=== PATIENT | female | born 1930 | race Caucasian/White ===

== ENCOUNTER 2017-07-19 16:32 | Inpatient (IN) | payer OTHER ==
[~2017-07-19] VITALS: Ht 149.9 cm; Wt 59.9 kg
[~2017-07-19 16:32] MED LIST: ALAVERT10 MG PO; AMLODIPINE BESY10 MG PO; ANALGESIC325 MG PO; ASPIRIN81 M2 PO; CALCIUM 500 +1 EAC6 PO; CRESTOR10 MG PO; FOSAMAX 70 MG T70 M1 PO; GLUCOPHAGE1000 MG PO; HUMALOG100 UNIT/1 SUBQ; LANTUS100 UNIT/M SUBQ; LEVOTHYROXIN0.025 MG PO; LOPRESSOR50 PO; MAGOX 400400 MG PO; MICARDIS HCT 81 EACH PO; MOTRIN 600 MG600 M1 OR; NORCO 5-325 TA1 EACH PO; PEPCID20 MG PO; PRAVASTATIN SOD40 MG PO; RANITIDINE HCL150 M1 PO; SERTRALINE HCL50 MG PO; VITAMIN B-1100 M1 PO; VITAMIN D 5050000 I1 PO; VITAMIN D31000 UNI1 PO
[2017-07-19 16:43] VITALS: BP 139/64
[2017-07-19] MEDS ORDERED: SEROQUEL 25 MG25 M1 PO (17:09)
[2017-07-19 17:34] LABS: ABSOLUTE BASOPHILS 0.1 thou/uL (0.0-0.2); ABSOLUTE EOSINOPHILS 0.1 thou/uL (0.0-0.7); ABSOLUTE LYMPHOCYTES 2.7 thou/uL (0.8-5.3); ABSOLUTE MONOCYTES 1.1 thou/uL (0.0-1.2); ABSOLUTE NEUTROPHILS 6.5 thou/uL (1.6-8.1); BASOPHILS 0.7 %; EOSINOPHILS 1.3 %; HEMATOCRIT 41.4 % (37.0-47.0); LYMPHOCYTES 25.5 %; MCH 30.5 pg (26.0-34.0); MCHC 33.7 g/dL (28.0-37.0); MCV 90.6 fL (80.0-100.0); MONOCYTES 10.9 %; MPV 8.3 fl. (7.2-11.1); NUCLEATED RBCS 0 /100WBC; PLATELET COUNT* 250 thou/uL (150-400); POLYS 61.6 %; RBC 4.57 mil/uL (4.20-5.00); RDW-CV 14.4 % (10.5-14.5); WBC 10.5 thou/uL (4.0-11.0)
[2017-07-19 17:42] LABS: ANION GAP 6 mmol/L (7-16); BUN 25 mg/dL (7-18); CALCIUM 9.8 mg/dL (8.5-10.1); CHLORIDE 98 mmol/L (98-107); CO2 31 mmol/L (21-32); CREATININE 1.2 mg/dL (0.6-1.3); GLUCOSE 198 mg/dL (70-99); POTASSIUM 3.9 mmol/L (3.5-5.1); SODIUM 135 mmol/L (136-145)
[2017-07-19 17:44] LABS: APTT 24.7 Seconds (25.0-31.3); PROTIME 10.1 Seconds (9.20-11.50)
[2017-07-19 18:01] LABS: ALBUMIN 3.7 g/dL (3.4-5.0); ALKALINE PHOSPHATASE 56 U/L (46-116); CK-MB MASS 0.5 ng/mL (<0.5-3.6); NT-PRO BRAIN NAT PEPTIDE 295 pg/mL (<300); SGOT 29 U/L (15-37); SGPT 37 U/L (30-65); TOTAL BILIRUBIN 0.8 mg/dL (<0.1-1.0); TOTAL PROTEIN 7.4 g/dL (6.4-8.2); TROPONIN-I LEVEL <0.06 ng/mL (<0.06)
[2017-07-19 18:31] LABS: URINE BILIRUBIN NEGATIVE (Negative); URINE BLOOD TRACE (Negative); URINE CLARITY CLEAR; URINE COLOR YELLOW; URINE GLUCOSE-RANDOM NEGATIVE (Negative); URINE KETONES NEGATIVE (Negative); URINE LEUKOCYTES-REFLEX NEGATIVE (Negative); URINE NITRITE-REFLEX NEGATIVE (Negative); URINE PROTEIN NEGATIVE (Negative); URINE UROBILINOGEN 0.2 E.U./dl (0.2-1.0)
[2017-07-19 20:44] VITALS: BP 139/64
[2017-07-20 00:01] VITALS: BP 149/61
[2017-07-20 03:43] VITALS: BP 154/63
[2017-07-20 08:00] VITALS: BP 134/59
--- NOTE | 2017-07-20 09:37 | EKG ---
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: [place] : 1930 Requested By: Candelario Rasmussen Order Number: [id number] MD: Sergey Santiago Measurements Intervals [place] Rate: 74 P: 34 MS: 157 QRS: 14 QRSD: 102 T: 237 QT: 392 QTc: 435 Interpretive Statements Sinus rhythm Probable anterior infarct, age indeterminate Abnormal T, consider ischemia, diffuse leads Lateral leads are also involved Compared to ECG 07/26/2016 18:44:47 Myocardial infarct finding now present T-wave abnormality now present Possible ischemia now present Electronically Signed On 07-20-2017 9:37:16 CDT by Sergey Santiago [email or web address] <ELECTRONICALLY SIGNED> By: Sergey Santiago MD, FAC 07/20/17 0937 1715 1715 Sergey Santiago MD, FAC /EPI
[2017-07-20 10:02] LABS: ALBUMIN 3.6 g/dL (3.4-5.0); CALCIUM 9.5 mg/dL (8.5-10.1); CREATININE 1.2 mg/dL (0.6-1.3); POTASSIUM 3.7 mmol/L (3.5-5.1); TOTAL BILIRUBIN 0.9 mg/dL (<0.1-1.0); TOTAL PROTEIN 7.4 g/dL (6.4-8.2)
[2017-07-20 12:46] VITALS: BP 116/53
[2017-07-20 17:16] VITALS: BP 140/65
[2017-07-20 20:00] VITALS: BP 139/51
[2017-07-20 23:06] LABS: GLYCOHEMOGLOBIN (HGB A1C) 8.3 % (4.8-5.6)
[2017-07-21] VITALS (7 sets, daily range): BP systolic 119–163; BP diastolic 56–71
[2017-07-21 05:23] LABS: CHOLESTEROL 179 mg/dL (<200); HDL CHOLESTEROL 46 mg/dL (>40); LDL CHOLESTEROL 87 mg/dL (<100); TC:HDL 3.9 Ratio (Not establshd); TRIGLYCERIDE 230 mg/dL (<150); VLDL 46 mg/dL (<40)
[2017-07-21 05:29] LABS: SERUM ASSESSMENT Clear
[2017-07-22 00:22] VITALS: BP 134/57
[2017-07-22 04:44] VITALS: BP 132/54
[2017-07-22 08:00] VITALS: BP 164/63
[2017-07-22 12:34] VITALS: BP 136/53
--- NOTE | 2017-07-22 15:35 | 2DMMODE ---
[place] [address] 2 D/M-MODE ECHOCARDIOGRAM Name: MAYE FERMIN Room: [address] IN [facility]#: [id number] Admission: 07/19/17 Attend Phys: Lani Kemp, Discharge: Date of : [birth year] Date of Service: 07/22/17 1535 Report #: [id number] THIS REPORT FOR: //name// APPROVED REPORT Study performed: 07/22/2017 14:18:03 EXAM: Comprehensive 2D, Doppler, and color-flow Echocardiogram Patient Location: In-Patient Room #: [facility] Status: routine BSA: 1.61 HR: 66 bpm BP: 132/54 mmHg Rhythm: NSR Other Information Study Quality: Good Indications CVA/TIA Echo Enhancing Agent Indication: Rule out Shunt Agent(s) / Amount(s) Used: Agitated Saline 10 cc 2D Dimensions LVEF(%): 63.09 (>50%) IVSd: 12.41 (7-11mm) LVOT Diam: 19.66 (18-24mm) LVDd: 39.94 mm PWd: 11.39 (7-11mm) Ascending Ao: 27.21 (22-36mm) LVDs: 26.48 (25-40mm) Aortic Root: 29.71 mm Slater's LVEF: 63.09 % Volumes Left Atrial Volume (Systole) LA ESV Index: 26.00 mL/m2 Aortic Valve AoV Peak Subhash.: 1.70 m/s AO Peak Gr.: 11.50 mmHg LVOT Max P.71 mmHg AO Mean Gr.: 7.04 mmHg LVOT Mean P.87 mmHg LVOT Max V: 0.65 m/s AO V2 VTI: 39.67 cm LVOT Mean V: 0.43 m/[place] [address] 2 D/M-MODE ECHOCARDIOGRAM Name: MAYE FERMIN Room: [address] IN .R.#: [id number] Admission: 07/19/17 Attend Phys: Lani Kemp, Discharge: Date of : [birth year] Date of Service: 07/22/17 1535 Report #: [id number] DIXIE (VTI): 1.46 cm2 LVOT V1 VTI: 19.13 cm Mitral Valve E/A Ratio: 0.64 MV Decel. Time: 296.29 ms MV E Max Subhash.: 0.49 m/s MV PHT: 85.92 ms MVA (PHT): 2.56 cm2 TDI E/Lateral E': 6.13 E/Medial E': 6.13 Medial E' Subhash.: 0.08 m/s Lateral E' Subhash.: 0.08 m/s Pulmonary Valve PV Peak Subhash.: 0.79 m/s PV Peak Gr.: 2.52 mmHg Tricuspid Valve TR Peak Gr.: 23.19 mmHg RVSP: 28.00 mmHg Left Ventricle The left ventricle is normal size. There is normal LV segmental wall motion. Mild concentric left ventricular hypertrophy. Left ventricular systolic function is normal. The left ventricular ejection fraction is within the normal range. LVEF is 55-60%. Grade I - abnormal relaxation pattern. Right Ventricle The right ventricle is normal size. The right ventricular systolic function is normal. Atria The left atrium size is normal. Interatrial septum is intact without evidence of ASD or PFO. The right atrium size is normal. Aortic Valve Mild aortic valve sclerosis. Trace aortic regurgitation. There is no aortic valvular stenosis. Mitral Valve The mitral valve is normal in structure. Mild mitral regurgitation. No evidence of mitral valve stenosis. Tricuspid Valve The tricuspid valve is normal in structure. Trace tricuspid regurgitation. The RVSP is ____28___ [place] [address] 2 D/M-MODE ECHOCARDIOGRAM Name: MAYE FERMIN Room: [address] IN M.R.#: [id number] Admission: 07/19/17 Attend Phys: Lani Kemp, Discharge: Date of : [birth year] Date of Service: 07/22/17 1535 Report #: [id number] Pulmonic Valve The pulmonary valve is normal in structure. There is no pulmonic valvular regurgitation. Great Vessels The aortic root is normal in size. IVC is normal in size and collapses with >50% inspiration Pericardium There is no pericardial effusion. <Conclusion> Mild concentric left ventricular hypertrophy. LVEF is 55-60%. Mild aortic valve sclerosis. Mild mitral regurgitation. Interatrial septum is intact without evidence of ASD or PFO. <ELECTRONICALLY SIGNED> By: Ranjan Olivo MD, [facility] 07/22/17 1535 1535 1535 Ranjan Olivo MD, FACC /INF
[2017-07-22 15:56] VITALS: BP 127/57
[2017-07-22 20:00] VITALS: BP 138/56
[2017-07-23] VITALS: BP 142/84
[2017-07-23 04:38] VITALS: BP 129/72
[2017-07-23 08:00] VITALS: BP 139/67
[2017-07-23 12:21] VITALS: BP 133/58
[2017-07-23 15:49] VITALS: BP 147/63
[2017-07-23 20:00] VITALS: BP 155/60
[2017-07-23] MEDS ORDERED: PLAVIX 75 MG TA75 M1 PO (23:31)
[2017-07-24] VITALS: BP 154/61
[2017-07-24 03:57] VITALS: BP 144/60
[2017-07-24 08:00] VITALS: BP 121/53
[2017-07-24 12:00] VITALS: BP 109/73
[2017-07-24 16:00] VITALS: BP 148/61
[2017-07-24 17:55] VITALS: BP 148/61
== END 2017-07-24 18:39 | DRG 64 ==
LOC: M.ERS 16:32 → M.2W 18:46 → M.TBA-ER 18:46 → M.2W 20:30
PROVIDERS: Family Medicine; ADMIT Internal Medicine
DX: I63.9 Cerebral infarction, unspecified (principal); G93.41 Metabolic encephalopathy; J98.11 Atelectasis; I25.10 Atherosclerotic heart disease of native coronary artery without angina pectoris; I10 Essential (primary) hypertension; I99.9 Unspecified disorder of circulatory system; E11.9 Type 2 diabetes mellitus without complications; M19.90 Unspecified osteoarthritis, unspecified site; E78.00 Pure hypercholesterolemia, unspecified; Z96.649 Presence of unspecified artificial hip joint; Z79.82 Long term (current) use of aspirin; Z79.4 Long term (current) use of insulin; Z79.899 Other long term (current) drug therapy; Z88.2 Allergy status to sulfonamides; Z91.040 Latex allergy status; Z90.710 Acquired absence of both cervix and uterus; Z95.1 Presence of aortocoronary bypass graft; Z98.890 Other specified postprocedural states; Z82.49 Family history of ischemic heart disease and other diseases of the circulatory system

== ENCOUNTER 2017-07-24 17:07 | Inpatient (IN) | payer OTHER ==
[~2017-07-24] VITALS: Ht 149.9 cm; Wt 61.9 kg
[~2017-07-24 17:07] MED LIST changes: +PLAVIX 75 MG TA75 M1 PO; +SEROQUEL 25 MG25 M1 PO
[2017-07-24 19:30] VITALS: BP 123/57
[2017-07-25 04:19] LABS: HEMATOCRIT 38.9 % (37.0-47.0); MCH 30.6 pg (26.0-34.0); MCHC 33.4 g/dL (28.0-37.0); MCV 91.8 fL (80.0-100.0); MPV 8.3 fl. (7.2-11.1); RBC 4.24 mil/uL (4.20-5.00); RDW-CV 14.3 % (10.5-14.5)
[2017-07-25 04:31] LABS: CALCIUM 9.4 mg/dL (8.5-10.1); CREATININE 1.1 mg/dL (0.6-1.3); POTASSIUM 4.4 mmol/L (3.5-5.1)
[2017-07-25 08:00] VITALS: BP 144/60
[2017-07-25 20:00] VITALS: BP 142/62
[2017-07-26 08:00] VITALS: BP 121/65
[2017-07-26 16:21] VITALS: BP 120/50
[2017-07-26 20:05] VITALS: BP 127/61
[2017-07-27 08:09] VITALS: BP 142/70
[2017-07-27 20:05] VITALS: BP 126/63
[2017-07-28 07:15] VITALS: BP 143/58
[2017-07-28 20:11] VITALS: BP 136/51
[2017-07-29 08:05] VITALS: BP 122/47
[2017-07-29 20:14] VITALS: BP 143/69
[2017-07-30 07:51] VITALS: BP 174/66
[2017-07-30 19:30] VITALS: BP 149/58
[2017-07-31 07:52] VITALS: BP 145/59
[2017-07-31 20:05] VITALS: BP 145/64
[2017-08-01 19:35] VITALS: BP 136/62
[2017-08-02 08:00] VITALS: BP 151/73
[2017-08-02 20:15] VITALS: BP 176/63
[2017-08-03 07:30] VITALS: BP 139/65
[2017-08-03 20:00] VITALS: BP 129/62
[2017-08-04 07:45] VITALS: BP 115/73
[2017-08-04 20:00] VITALS: BP 125/59
[2017-08-05 08:01] VITALS: BP 146/62
[2017-08-05 20:27] VITALS: BP 109/55
[2017-08-06 08:10] VITALS: BP 141/54
[2017-08-06 19:49] VITALS: BP 134/51
[2017-08-07 08:15] VITALS: BP 137/58
[2017-08-07 19:30] VITALS: BP 135/69
[2017-08-08 07:49] VITALS: BP 133/48
[2017-08-08 19:30] VITALS: BP 144/52
[2017-08-09 08:26] VITALS: BP 128/57
[2017-08-09 20:00] VITALS: BP 138/65
[2017-08-10 07:18] LABS: HEMATOCRIT 40.9 % (37.0-47.0); HEMOGLOBIN 13.3 gm/dL (12.0-15.0); MCH 30.2 pg (26.0-34.0); MCHC 32.6 g/dL (28.0-37.0); MCV 92.5 fL (80.0-100.0); MPV 8.3 fl. (7.2-11.1); RBC 4.42 mil/uL (4.20-5.00); RDW-CV 13.8 % (10.5-14.5); WBC 7.5 thou/uL (4.0-11.0)
[2017-08-10 07:24] LABS: CALCIUM 9.5 mg/dL (8.5-10.1); MAGNESIUM 1.9 mg/dL (1.8-2.4); POTASSIUM 3.8 mmol/L (3.5-5.1)
[2017-08-10 07:41] VITALS: BP 137/58
[2017-08-10 08:03] VITALS: BP 137/58
[2017-08-10 20:08] VITALS: BP 143/63
[2017-08-11 00:20] VITALS: BP 143/63
[2017-08-11] MEDS ORDERED: METFORMIN HCL500 MG PO (00:28)
[2017-08-11] MEDS ORDERED: CRESTOR10 MG PO (00:31)
[2017-08-11 08:25] VITALS: BP 141/51
[2017-08-11 19:30] VITALS: BP 130/59
[2017-08-12 03:59] LABS: HEMOGLOBIN 13.2 gm/dL (12.0-15.0); MCH 30.4 pg (26.0-34.0); MCV 92.2 fL (80.0-100.0); MPV 8.3 fl. (7.2-11.1); RBC 4.34 mil/uL (4.20-5.00); RDW-CV 13.9 % (10.5-14.5); WBC 7.3 thou/uL (4.0-11.0)
[2017-08-12 04:18] LABS: MAGNESIUM 1.9 mg/dL (1.8-2.4); POTASSIUM 4.2 mmol/L (3.5-5.1)
[2017-08-12 08:02] VITALS: BP 123/55
--- NOTE | 2017-08-12 12:16 | H ---
[facility] [address] [place] [address] HISTORY AND PHYSICAL Name: MAYE FERMIN Room: [address] IN .R.#: [id number] Admission: 07/24/17 Attend Phys: Paradise Willams DO Discharge: Date of : [birth year] Report #: [id number] THIS REPORT FOR: //name// CC: Ham Willams DATE OF SERVICE: 07/24/2017 HISTORY OF PRESENT ILLNESS: This is an 86-year-old female, right hand dominant, known to this service from previous consultation while on acute during her hospital stay. 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 Previous level of function was modified independent to independent. Current level of function is minimum assistance of 1-2 depending on therapy, activity and time of day. She is utilizing a front-wheeled walker. She is ambulating 20 feet. She has moderate to severe impairment of comprehension, expression, social interaction, problem solving and memory. Estimated length of stay is 14-16 days, with discharge disposition to the home setting where she has supportive family that can provide supervision and assistance, this does include her daughter. No changes since the preadmission screening. She does have multiple medical comorbidities including diabetes with a random glucose of 161, hypertension, hyperlipidemia, osteoarthritis, coronary artery disease. She does have a history of a previous CVA in 2017 as well with residual hemiparesis on the right dominant side. Patient has new dysphagia. New left hand hemiparesis. New expressive aphasia. PAST MEDICAL HISTORY: Hypertension, hyperlipidemia, osteoarthritis, coronary artery disease, diabetes (uncontrolled) , altered mental status, anemia, history of previous CVA with residual right hemiparesis. SURGICAL HISTORY: She has history of back surgery and open heart surgery and a total hip replacement. ALLERGIES: SULFA AND TAPE. SOCIAL HISTORY: Former use of alcohol, but no tobacco or illicit drug use. MEDICATIONS: Reviewed and reconciled by myself and are available in the MAR. FAMILY HISTORY: Heart disease. REVIEW OF SYSTEMS: A 14-point review of systems is done and is negative except as mentioned in HPI, specifically no fever, chest pain, shortness of breath, [place] [address] HISTORY AND PHYSICAL Name: JENYMAYE Tony Room: [address] IN [facility].#: [id number] Admission: 07/24/17 Attend Phys: Paradise Willams DO Discharge: Date of : [birth year] Report #: [id number] abdominal pain or distention, change in bowel or change in bladder. PHYSICAL EXAMINATION: GENERAL: Alert, oriented, no apparent distress. VITAL SIGNS: Reviewed and are stable. HEENT: Head atraumatic, normocephalic. Pupils equal, round, reactive. ABDOMEN: Soft, nontender, nondistended. NEUROLOGIC: Cranial nerves 2-12 are grossly intact. No focal neuro deficits. SKIN: Warm and dry. No rashes or lesions are noted. MUSCULOSKELETAL: No clubbing, cyanosis or edema. ASSESSMENT: 1. Left occipital lobe cerebrovascular accident, with history of previous cerebrovascular accident with residual hemiparesis. 2. Multiple medical comorbidities as stated previously. 3. New onset Dysphagia and expressive aphasia 4. uncontrolled dm PLAN: 1. Admission to inpatient rehabilitation. 2. PT, OT, speech, language, case management, nursing and HIMS to make evaluations and recommendations. 3. Plan of care is pending. We will team her weekly. 4. Appropriate labs and diet have been ordered. <ELECTRONICALLY SIGNED> By: Paradise Willams DO 08/12/17 1216 1543 1703Kneal Willams DO /nt
[2017-08-12 19:30] VITALS: BP 149/56
[2017-08-13 07:51] VITALS: BP 134/96
[2017-08-13 09:45] VITALS: BP 143/63
[2017-08-13 09:49] VITALS: BP 143/63
[2017-08-13] MEDS ORDERED: METFORMIN HCL500 MG PO (13:26)
[2017-08-13] MEDS ORDERED: PLAVIX 75 MG TA75 M1 PO (13:26)
[2017-08-13 14:05] VITALS: BP 143/63
--- NOTE | 2017-09-04 11:20 | PLAN ---
[facility] [address] [place] [address] REHAB UNIT PLAN OF CARE Name: MAYE FERMIN Room: [address] IN [facility].#: [id number] Admission: 07/24/17 Attend Phys: Paradise Willams DO Discharge: 08/13/17 Date of : [birth year] Report #: [id number] THIS REPORT FOR: //name// CC: Ham Willams This is an 86-year-old right-hand dominant female status post left occipital lobe infarct. She was admitted to inpatient rehabilitation to facilitate safe discharge home. She does have supportive family that can provide assistance as well as supervision; this does include her daughter. She has an accessible house. Medical prognosis is good. Rehabilitation prognosis is good. Estimated length of stay is 14-16 days with discharge disposition to the home setting. She does have multiple medical comorbidities. No changes since the preadmission screening. Previous level of function was modified independent. Current level of function is supervision to minimum assistance of 1-2 depending on therapy, activity and time of day. She also has [id number] impairment of comprehension, expression, social interaction, problem solving and memory. Physical Therapy will see the patient 60-90 minutes per day, 5 days per week, working on upper and lower body strength, balance, coordination, navigation, bathing. Occupational Therapy will work with the patient 60-90 minutes per day, 5 days per week, working on upper and lower body strength, balance, coordination, navigation, bathing, dressing, and toileting. Speech and Language Pathology will work with the patient 60-90 minutes per day, 5 days per week, working on comprehension, expression, social interaction, problem solving and memory. This is an overall plan of care, may change from time to time. We will team her weekly and make changes to plan of care as needed. <ELECTRONICALLY SIGNED> By: Paradise Willams DO 09/04/17 1120 1545 Juan A Willams DO /nt
== END 2017-08-13 14:05 | disposition home health service (06) | DRG 56 ==
LOC: M.REH 17:07
PROVIDERS: Family Medicine; ADMIT Physical Medicine & Rehabilitation
DX: I69.951 Hemiplegia and hemiparesis following unspecified cerebrovascular disease affecting right dominant side (principal); I63.9 Cerebral infarction, unspecified; R47.01 Aphasia; I10 Essential (primary) hypertension; E78.5 Hyperlipidemia, unspecified; M19.90 Unspecified osteoarthritis, unspecified site; R13.10 Dysphagia, unspecified; E11.65 Type 2 diabetes mellitus with hyperglycemia; R41.89 Other symptoms and signs involving cognitive functions and awareness; I25.10 Atherosclerotic heart disease of native coronary artery without angina pectoris; Z88.2 Allergy status to sulfonamides; Z91.041 Radiographic dye allergy status; Z95.1 Presence of aortocoronary bypass graft; Z82.49 Family history of ischemic heart disease and other diseases of the circulatory system; Z79.82 Long term (current) use of aspirin; Z79.4 Long term (current) use of insulin; Z79.899 Other long term (current) drug therapy; Z90.710 Acquired absence of both cervix and uterus; Z79.02 Long term (current) use of antithrombotics/antiplatelets

== ENCOUNTER 2018-01-07 09:55 | Inpatient (IN) | payer OTHER ==
[~2018-01-07] VITALS: Ht 154.9 cm; Wt 67.1 kg
[~2018-01-07 09:55] MED LIST changes: +METFORMIN HCL500 MG PO
[2018-01-07 10:01] VITALS: BP 149/68
[2018-01-07] MEDS ORDERED: ROSUVASTATIN CA10 MG PO (10:10)
[2018-01-07] MEDS ORDERED: SEROQUEL 25 MG25 M1 PO (10:10)
[2018-01-07] MEDS ORDERED: CALCIUM 600 +1 EAC1 PO (10:11)
[2018-01-07] MEDS ORDERED: ZANTAC 150MG T150 MG PO (10:11)
[2018-01-07] MEDS ORDERED: PROAIR RESPICL90 MCG INH (10:12)
[2018-01-07] MEDS ORDERED: LANTUS SOL100 UNIT/1 SUBQ (10:12)
[2018-01-07] MEDS ORDERED: AMOXICILLIN 50500 MG PO (10:13)
[2018-01-07 10:31] LABS: ABSOLUTE EOSINOPHILS 0.3 thou/uL (0.0-0.7); ABSOLUTE LYMPHOCYTES 1.7 thou/uL (0.8-5.3); ABSOLUTE MONOCYTES 1.1 thou/uL (0.0-1.2); ABSOLUTE NEUTROPHILS 5.6 thou/uL (1.6-8.1); BASOPHILS 0.5 %; HEMATOCRIT 41.6 % (37.0-47.0); HEMOGLOBIN 13.8 gm/dL (12.0-15.0); LYMPHOCYTES 19.8 %; MCH 29.2 pg (26.0-34.0); MCHC 33.1 g/dL (28.0-37.0); MCV 88.2 fL (80.0-100.0); MONOCYTES 12.7 %; MPV 8.2 fl. (7.2-11.1); NUCLEATED RBCS 0 /100WBC; PLATELET COUNT* 236 thou/uL (150-400); RBC 4.72 mil/uL (4.20-5.00); RDW-CV 14.7 % (10.5-14.5); WBC 8.7 thou/uL (4.0-11.0)
[2018-01-07 10:42] LABS: ANION GAP 10 mmol/L (7-16); BUN 17 mg/dL (7-18); CALCIUM 9.2 mg/dL (8.5-10.1); CHLORIDE 103 mmol/L (98-107); CO2 28 mmol/L (21-32); CREATININE 1.1 mg/dL (0.6-1.3); GLUCOSE 127 mg/dL (70-99); POTASSIUM 3.5 mmol/L (3.5-5.1); SODIUM 141 mmol/L (136-145)
[2018-01-07 10:47] LABS: APTT 26.9 Seconds (25.0-31.3); PROTIME 10.2 Seconds (9.20-11.50)
[2018-01-07 10:53] LABS: ALBUMIN 3.5 g/dL (3.4-5.0); ALKALINE PHOSPHATASE 60 U/L (46-116); NT-PRO BRAIN NAT PEPTIDE 316 pg/mL (<300); SGOT 20 U/L (15-37); SGPT 27 U/L (30-65); TOTAL PROTEIN 7.7 g/dL (6.4-8.2); TROPONIN-I LEVEL <0.06 ng/mL (<0.06)
--- NOTE | 2018-01-07 16:50 | EKG ---
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: : 1930 Requested By: Candelario Rasmussen Order Number: [id number] MD: Sergey Santiago Measurements Intervals [place] Rate: 74 P: -1 DE: 138 QRS: -26 QRSD: 108 T: 146 QT: 382 QTc: 424 Interpretive Statements Sinus rhythm Borderline left axis deviation Anterior infarct, age indeterminate Lateral leads are also involved Compared to ECG 07/19/2017 17:15:15 T-wave abnormality no longer present Possible ischemia no longer present Myocardial infarct finding still present Electronically Signed On 01-07-2018 16:49:56 PROGRAM ARRANGER by Sergey Santiago [email or web address] <ELECTRONICALLY SIGNED> By: Sergey Santiago MD, FACC 01/07/18 1649 1008 1008 Sergey Santiago MD, FACC /EPI
[2018-01-07 17:10] VITALS: BP 147/50
[2018-01-07 17:15] VITALS: BP 139/52
[2018-01-07 20:45] VITALS: BP 151/61
[2018-01-07 23:50] VITALS: BP 133/50
[2018-01-08 04:20] VITALS: BP 170/61
[2018-01-08 07:50] VITALS: BP 143/58
[2018-01-08 16:00] VITALS: BP 153/77
[2018-01-08 21:06] LABS: GLYCOHEMOGLOBIN (HGB A1C) 9.1 % (4.8-5.6)
[2018-01-08 23:30] VITALS: BP 173/75
[2018-01-09 03:50] VITALS: BP 146/69
[2018-01-09 03:50] LABS: ABSOLUTE LYMPHOCYTES 0.9 thou/uL (0.8-5.3); ABSOLUTE MONOCYTES 0.3 thou/uL (0.0-1.2); ABSOLUTE NEUTROPHILS 4.9 thou/uL (1.6-8.1); BASOPHILS 0.1 %; HEMATOCRIT 37.7 % (37.0-47.0); HEMOGLOBIN 12.3 gm/dL (12.0-15.0); LYMPHOCYTES 14.4 %; MCH 28.9 pg (26.0-34.0); MCHC 32.5 g/dL (28.0-37.0); MCV 88.8 fL (80.0-100.0); MONOCYTES 5.1 %; MPV 8.4 fl. (7.2-11.1); NUCLEATED RBCS 0 /100WBC; PLATELET COUNT* 243 thou/uL (150-400); POLYS 80.4 %; RBC 4.24 mil/uL (4.20-5.00); RDW-CV 14.8 % (10.5-14.5); WBC 6.1 thou/uL (4.0-11.0)
[2018-01-09 03:55] LABS: CALCIUM 9.3 mg/dL (8.5-10.1); MAGNESIUM 1.9 mg/dL (1.8-2.4); POTASSIUM 3.4 mmol/L (3.5-5.1)
[2018-01-09 08:00] VITALS: BP 174/70
--- NOTE | 2018-01-09 12:03 | CON ---
[address] [address] CONSULTATION Name: MAYE FERMIN Room: [address] IN M.R.#: [id number] Admission: 01/07/18 Attend Phys: Bandar Howard Discharge: Date of : [birth year] Report #: [id number] THIS REPORT FOR: //name// CC: Ham Valadez DATE OF SERVICE: 01/08/2018 REQUESTING PHYSICIAN: Dr. Valadez. REASON FOR CONSULTATION: Pneumonia. DISCUSSION: An 87-year-old woman with prior history of strokes. She was brought to the Emergency Department yesterday with increasing weakness and generalized malaise for the last 6 days or so. She is a fair historian. Currently, her daughter is not at the bedside. Was given breathing treatments en route. She is a nonsmoker. She has had some cough, but denies bringing up much mucus. When evaluated in the Emergency Department, notes indicate her saturations were in the 90s. ED notes indicate her lungs were clear. Chest x-ray revealed right lower lobe opacity, which could be consistent with pneumonia. With her increased weakness and prior history of strokes, she also had another CT head done. She was admitted, started on IV antibiotics. T-max since admission was 99. She has been on O2 at 2 liters overnight. We were able to take that off at the time I saw her this morning. She is a lifelong nonsmoker. She denies ever being told that she had asthma or COPD. She has had several strokes. Last one was back in the spring of this year, she did spend some time on rehabilitation. She denies having difficulty smoking at home. PAST MEDICAL HISTORY: Remarkable for hypertension. She has had several strokes and TIAs. A history of coronary artery disease, had coronary artery bypass grafting surgery. Has had a prior hysterectomy, bilateral hip replacements. At that time, she was admitted yesterday. HOME MEDICATIONS: Plavix, Seroquel, calcium, ranitidine, amlodipine, levothyroxine, amoxicillin, insulin, Crestor. SOCIAL HISTORY: Nonsmoker. Lives with family. FAMILY HISTORY: Positive for heart disease. REVIEW OF SYSTEMS: ROS was done. She denies having any difficulty swallowing at home. Does use a walker to ambulate. Denies any chest pain. [place], [place] [address] CONSULTATION Name: MAYE FERMIN Room: [address]#: [id number] Admission: 01/07/18 Attend Phys: Bandar Howard Discharge: Date of : [birth year] Report #: [id number] was feeling short of breath at home. She also describes her breathing is doing "funny." Denies any hemoptysis. Denies having any vomiting, diarrhea. Was around family members at [facility] including small children. She has had her flu shot. Denies swelling in her lower extremities. No recent falls. No syncopal episodes. PHYSICAL EXAMINATION: GENERAL APPEARANCE: Woman who looks stated age. Alert, cooperative. Her speech is fairly easy to understand. At times, she does hesitate before speaking. Did observe her ambulating into the bathroom with a walker. She did get somewhat dyspneic with exertion, but did fairly quickly resolve. At rest on room air, O2 saturations were in the low 90s. Even after ambulating; however, from the bathroom back to bed, O2 saturations were 94%. At rest, she looked comfortable. Did look somewhat dyspneic when she was exerting herself. HEENT: Head is normocephalic. Mucous membranes are a little dry. NECK: Negative for adenopathy. No supraclavicular adenopathy. HEART: Regular. No S3 is heard. LUNGS: Reveal breath sounds to be somewhat diminished. After ambulating, though she was tachypneic. There was audible wheezing heard. She had rhonchi and expiratory wheezes heard bilaterally. ABDOMEN: Mildly obese, but soft, without appreciable hepatosplenomegaly. There is no guarding or rebound tenderness noted. EXTREMITIES: She has no clubbing. Lower extremities are negative for edema. She denies any calf tenderness. SKIN: Turgor is fair. NEUROLOGIC: Does appear alert and oriented x 3. LABORATORY AND X-RAY FINDINGS: Chest x-ray does show some infiltrate seen in the right base. This was not seen on studies done this past spring. On her chemistry, BUN is 17, creatinine of 1.1, potassium is 3.5. White blood cell count 8700, hemoglobin 13.8, hematocrit 41.6, platelets 236,000. Blood cultures were sent. IMPRESSION: 1. Right lower lobe infiltrate consistent with pneumonia. With prior history of strokes, main concern is this could represent an aspiration pneumonia. Clinically, is better today. 2. Hypoxemia, appears resolved. Room air sats are good on room air even with exertion. 3. Bronchospasm. Most likely related to her lower respiratory tract infection. 4. History of prior strokes. 5. History of coronary artery disease status post coronary artery bypass grafting surgery. Do note last echocardiogram showed preserved systolic function. RECOMMENDATIONS: [facility] [address] [place] [address] CONSULTATION Name: MAYE FERMIN Room: [address]#: [id number] Admission: 01/07/18 Attend Phys: Bandar Howard Discharge: Date of : [birth year] Report #: [id number] 1. We will continue her DuoNeb. Next 24 hours of steroids. 2. Continue antibiotics. Follow up chest x-ray tomorrow. 3. We will also check respiratory viral panel. 4. Agree with swallow evaluation, which has already been requested. 5. Hopefully get discharged home in the next several days. <ELECTRONICALLY SIGNED> By: Elizabeth Mayo MD 01/09/18 1203 1047 1443Elizabeth Mayo MD /nt
[2018-01-09 16:00] VITALS: BP 147/63
[2018-01-10] VITALS: BP 112/55
[2018-01-10 04:00] VITALS: BP 116/52
[2018-01-10 04:00] LABS: HEMATOCRIT 37.6 % (37.0-47.0); HEMOGLOBIN 12.2 gm/dL (12.0-15.0); MCH 28.9 pg (26.0-34.0); MCHC 32.4 g/dL (28.0-37.0); MCV 89.1 fL (80.0-100.0); MPV 7.7 fl. (7.2-11.1); RBC 4.22 mil/uL (4.20-5.00); RDW-CV 14.6 % (10.5-14.5); WBC 10.7 thou/uL (4.0-11.0)
[2018-01-10 04:22] LABS: CALCIUM 8.9 mg/dL (8.5-10.1); POTASSIUM 3.5 mmol/L (3.5-5.1)
[2018-01-10 08:00] VITALS: BP 164/83
[2018-01-10 12:00] VITALS: BP 120/52
[2018-01-10] MEDS ORDERED: LEVAQUIN 750 M750 MG PO (13:00)
[2018-01-10 13:50] VITALS: BP 120/52
[2018-01-11 02:07] LABS: ADENOVIRUS Negative (Negative); INFLUENZA A Negative (Negative); INFLUENZA B Negative (Negative); METAPNEUMOVIRUS Negative (Negative); PARAINFLUENZA 1 Negative (Negative); PARAINFLUENZA 2 Negative (Negative); PARAINFLUENZA 3 Negative (Negative); RHINOVIRUS Negative (Negative); RSV A Negative (Negative); RSV B Negative (Negative)
== END 2018-01-10 14:40 | disposition home health service (06) | DRG 177 ==
LOC: M.ERS 09:55 → M.TBA-ER 11:57 → M.3W 11:57
PROVIDERS: Family Medicine; Internal Medicine Pulmonary Disease; ADMIT Internal Medicine
DX: J15.6 Pneumonia due to other Gram-negative bacteria (principal); J96.01 Acute respiratory failure with hypoxia; R65.10 Systemic inflammatory response syndrome (SIRS) of non-infectious origin without acute organ dysfunction; E78.5 Hyperlipidemia, unspecified; I10 Essential (primary) hypertension; Z96.643 Presence of artificial hip joint, bilateral; E78.00 Pure hypercholesterolemia, unspecified; M19.90 Unspecified osteoarthritis, unspecified site; I25.10 Atherosclerotic heart disease of native coronary artery without angina pectoris; J04.0 Acute laryngitis; F03.90 Unspecified dementia, unspecified severity, without behavioral disturbance, psychotic disturbance, mood disturbance, and anxiety; E11.65 Type 2 diabetes mellitus with hyperglycemia; T38.0X5A Adverse effect of glucocorticoids and synthetic analogues, initial encounter; E87.6 Hypokalemia; Z79.82 Long term (current) use of aspirin; Z88.2 Allergy status to sulfonamides; Z86.73 Personal history of transient ischemic attack (TIA), and cerebral infarction without residual deficits; Z95.1 Presence of aortocoronary bypass graft; Z90.710 Acquired absence of both cervix and uterus; Z82.49 Family history of ischemic heart disease and other diseases of the circulatory system; Z79.899 Other long term (current) drug therapy; Z23 Encounter for immunization

== ENCOUNTER 2018-03-31 14:39 | Inpatient (IN) | payer OTHER ==
[~2018-03-31] VITALS: Ht 149.9 cm; Wt 64.0 kg
[~2018-03-31 14:39] MED LIST changes: +AMOXICILLIN 50500 MG PO; +CALCIUM 600 +1 EAC1 PO; +LANTUS SOL100 UNIT/1 SUBQ; +LEVAQUIN 750 M750 MG PO; +PROAIR RESPICL90 MCG INH; +ROSUVASTATIN CA10 MG PO; +ZANTAC 150MG T150 MG PO
[2018-03-31 14:44] VITALS: BP 139/68
[2018-03-31] MEDS ORDERED: LOPRESSOR50 PO (14:51)
[2018-03-31] MEDS ORDERED: MAGNESIUM OXID200 MG PO (14:51)
[2018-03-31] MEDS ORDERED: HYDROCHLOROTHIA25 M2 PO (14:52)
[2018-03-31 16:53] LABS: ABSOLUTE BASOPHILS 0.1 thou/uL (0.0-0.2); ABSOLUTE EOSINOPHILS 0.3 thou/uL (0.0-0.7); ABSOLUTE LYMPHOCYTES 2.2 thou/uL (0.8-5.3); ABSOLUTE NEUTROPHILS 8.1 thou/uL (1.6-8.1); BASOPHILS 0.7 %; EOSINOPHILS 2.8 %; HEMATOCRIT 42.7 % (37.0-47.0); HEMOGLOBIN 14.1 gm/dL (12.0-15.0); LYMPHOCYTES 18.4 %; MCH 29.4 pg (26.0-34.0); MONOCYTES 8.6 %; MPV 8.2 fl. (7.2-11.1); NUCLEATED RBCS 0 /100WBC; PLATELET COUNT* 240 thou/uL (150-400); POLYS 69.5 %; RDW-CV 15.6 % (10.5-14.5); WBC 11.7 thou/uL (4.0-11.0)
[2018-03-31 17:04] LABS: ANION GAP 9 mmol/L (7-16); BUN 20 mg/dL (7-18); CALCIUM 9.6 mg/dL (8.5-10.1); CHLORIDE 100 mmol/L (98-107); CO2 29 mmol/L (21-32); CREATININE 1.5 mg/dL (0.6-1.3); GLUCOSE 240 mg/dL (70-99); POTASSIUM 4.1 mmol/L (3.5-5.1); SODIUM 138 mmol/L (136-145)
[2018-03-31 17:18] LABS: ALBUMIN 3.7 g/dL (3.4-5.0); ALKALINE PHOSPHATASE 60 U/L (46-116); NT-PRO BRAIN NAT PEPTIDE 267 pg/mL (<300); SGOT 31 U/L (15-37); SGPT 31 U/L (30-65); TOTAL BILIRUBIN 0.7 mg/dL (<0.1-1.0); TOTAL PROTEIN 7.5 g/dL (6.4-8.2)
[2018-03-31 17:33] LABS: TROPONIN-I LEVEL <0.06 ng/mL (<0.06)
[2018-03-31 19:53] LABS: URINE BILIRUBIN NEGATIVE (Negative); URINE BLOOD TRACE (Negative); URINE CLARITY CLEAR; URINE COLOR YELLOW; URINE GLUCOSE-RANDOM NEGATIVE (Negative); URINE KETONES NEGATIVE (Negative); URINE LEUKOCYTES-REFLEX NEGATIVE (Negative); URINE NITRITE-REFLEX NEGATIVE (Negative); URINE PROTEIN NEGATIVE (Negative); URINE SPECIFIC GRAVITY 1.015 (1.005-1.030); URINE UROBILINOGEN 0.2 E.U./dl (0.2-1.0)
[2018-03-31 20:00] VITALS: BP 165/77
--- NOTE | 2018-03-31 20:00 | NUR ---
PT ADMITTED TO FLOOR PER CART ACCOMPANIED BY ER STAFF AND FAMILY WITH BELONGINGS. ORIENTED TO ROOM AND CALL LITE. PT ALERT,ORIENTED TO SELF AND SITUATION, PLEASANT. HISTORY OBTAINED FROM FAMILY AND ASSESSMENT PERFORMED, SEE ADMIT NOTES. CALL LITE IN EASY REACH, BED ALARM ON FOR SAFETY. RFA IVF PLACED ON PUMP FOR INFUSION-AWAITING IV ABX FROM [facility]. CO R SIDE PAIN WITH MOVEMENT, DENIES NEED FOR PAIN MEDS AT THIS TIME. REQUESTING BOX LUNCH, TO BE GIVEN. 02 2L NC. WILL CONTINUE TO MONITOR AND PROVIDE CARES NEEDED.
[2018-03-31 20:12] VITALS: BP 155/63
[2018-03-31] MEDS ORDERED: ZOLOFT100 MG PO (20:30)
[2018-04-01] VITALS: BP 124/56
[2018-04-01 03:55] VITALS: BP 152/64
--- NOTE | 2018-04-01 05:33 | NUR ---
PT HAS SLEPT FAIRLY WELL AFTER SETTLING IN AFTER ADMISSION. SETTING OFF BED ALARM GETTING OOB TO USE BSC, INCONTINENT OVERNIGHT. KATHERINE CARE GIVEN. BM SMEAR OVERNIGHT. PT CO R SIDE PAIN WITH MOVEMENT, ALLEVIATED WITH REST. RWRIST IVF INFUSING PER PUMP, ABX GIVEN ORDERED. RT TX. O2 2L NC. HS ACCUCHECK 163, INSULIN GIVEN ORDERED. AO TO SELF AND SITUATION, PLEASANT, FORGETFUL. CALL LITE IN EASY REACH, BED ALARM ON FOR SAFETY.
[2018-04-01 09:12] VITALS: BP 131/57
--- NOTE | 2018-04-01 09:46 | EKG ---
[place] [address] ELECTROCARDIOGRAM REPORT Name: MAYE FERMIN Room: [address] ADM IN M.R.#: [id number] Admission: 03/31/18 Attend Phys: Richard Stern MD Discharge: Date of : [birth year] Report #: [id number] THIS REPORT FOR: //name// [facility] ED Test Date: 2018-03-31 Test Time: 17:04:47 Pat Name: MAYE FERMIN Department: Room: [facility] Gender: F Viscosity Inspector: STEFFEN : 1930 Requested By: Yolette Stinson Order Number: [id number] MD: Varghese Solomon Measurements Intervals [place] Rate: 80 P: -19 NV: 141 QRS: -34 QRSD: 114 T: 145 QT: 394 QTc: 455 Interpretive Statements Sinus rhythm LVH with IVCD and secondary repol abnrm Compared to ECG 01/07/2018 10:08:59 Intraventricular conduction delay now present Left ventricular hypertrophy now present Early repolarization now present Myocardial infarct finding no longer present Electronically Signed On 04-01-2018 9:46:36 DOCK BUILDER by Varghese Solomon [email or web address] <ELECTRONICALLY SIGNED> By: Varghese Solomon MD, FACC 04/01/18 0946 1704 1704 Varghese Solomon MD, FACC /EPI
[2018-04-01 12:36] VITALS: BP 139/72
--- NOTE | 2018-04-01 15:50 | NUR ---
SPOKE TO THE PATIENT TO DISCUSS HER HOME SITUATION, DISCHARGE PLANNING, AND TO INFORM OF THE ROLE OF CM. PATIENT IS KNOWN TO CM FROM PREVIOUS ADMISSION. PATIENT ALERT, BUT FORGETFUL. PATIENT INFORMS THAT SHE RESIDES AT HOME WITH HER DTR SYDNIE. D/C CONCRETE MIXER OPERATOR SPOKE TO SYDNIE AND SHE INFORMS THAT SHE DOES ALL COOKING, CLEANING, AND PROVIDES TRANSPORTATION FOR THE PATIENT. PATIENT USES A WALKER FOR MOBILITY. RN IN-CHARGE OF THE PATIENT INFORMS THAT THE PHYSICIAN HAS PLACED A REHAB CONSULT FOR THE PATIENT AND NOTIFIED TO THE CYLINDER BLOCK MECHANIC. PATIENT AND HER DTR IN AGREEMENT WITH THE PLAN FOR ACUTE INPATIENT REHAB AT D/C. PT/OT ORDERED. CM WILL REMAIN AVIALABLE TO ASSIST AND FOLLOW NEEDED.
[2018-04-01 16:00] VITALS: BP 141/60
--- NOTE | 2018-04-01 16:58 | NUR ---
PATIENT RESTING IN BED. PATIENT HAS HAD COMPLAINTS TO LEFT HIP, TREATED WITH REPOSITIONING AND HYDROCODONE. PATIENT HAS POOR APPETITE, HAS COMPLAINTS OF ABDOMINAL FULLNESS. WOUNDS TO BACK CHANGED THIS AFTERNOON. WOUND VAC IN PLACE TO RIGHT ELBOW. NEW ANTIBIOTIC ORDERED AND INFUSED THIS AFTERNOON. PATIENT DENIES ANY NEEDS AT THIS TIME. CALL LIGHT WITHIN REACH. WILL CONTINUE TO MONITOR.
--- NOTE | 2018-04-01 17:10 | NUR ---
RECEIVED CONSULT FOR POSSIBLE REHAB AMISSION. CONSULT HAS BEEN ACKNOWLEDGED BY ROUGH CARPENTER AND DR. KABA. PATIENT ADMITTED AFTER A FALL AT HOME FOUND TO HAVE RIB FXS AND R FOOT FX. WITH HX OF CVA. PT/OT/ST EVALUATIONS ARE PENDING. WILL AWAIT EVALUATIONS TO DETERMINE IF PATIENT QUALIFIES FOR ACUTE REHAB. THANK YOU FOR THIS CONSULT.
--- NOTE | 2018-04-01 17:10 | NUR ---
PATIENT RESTING IN BED. PATIENT HAS HAD COMPLAINTS OF RIGHT RIB PAIN, TREATED ADEQUATELY WITH HYDROCODONE. PATIENT IS UP STANDBY ASSIST TO COMMODE. PATIENT HAS GOOD APPETITE. PATIENT DENIES ANY NEEDS AT THIS TIME. CALL LIGHT WITHIN REACH. WILL CONTINUE TO MONITOR.
[2018-04-01 20:30] VITALS: BP 142/60
[2018-04-02 04:30] LABS: ABSOLUTE LYMPHOCYTES 2.6 thou/uL (0.8-5.3); ABSOLUTE MONOCYTES 1.1 thou/uL (0.0-1.2); ABSOLUTE NEUTROPHILS 9.1 thou/uL (1.6-8.1); BASOPHILS 0.3 %; EOSINOPHILS 0.2 %; HEMATOCRIT 36.2 % (37.0-47.0); LYMPHOCYTES 20.5 %; MCHC 32.3 g/dL (28.0-37.0); MCV 89.8 fL (80.0-100.0); MONOCYTES 8.2 %; MPV 8.3 fl. (7.2-11.1); NUCLEATED RBCS 0 /100WBC; PLATELET COUNT* 215 thou/uL (150-400); POLYS 70.8 %; RBC 4.03 mil/uL (4.20-5.00); RDW-CV 15.9 % (10.5-14.5); WBC 12.8 thou/uL (4.0-11.0)
[2018-04-02 04:35] LABS: POTASSIUM 4.2 mmol/L (3.5-5.1)
[2018-04-02 04:39] LABS: HEMOGLOBIN 11.7 gm/dL (12.0-15.0)
--- NOTE | 2018-04-02 06:46 | NUR ---
PATIENT SLEPT MOST OF THE NIGHT. PATIENT WAS GIVEN PAIN MEDICINE TWICE THIS SHIFT FOR RIB FRACTURES. PATIENT IS NOW ON OXYGEN AT 5L SATTING 91-92%. PATIENT HAS AUDIBLE WHEEZING WITH MINIMAL MOVEMENT BREATHING TREATMENT WAS GIVEN TWICE. WHEEZES ARE IN THE BRONCHIALS LUNGS SOUND MOSTLY CLEAR. IV FLUIDS CONTINUE TO INFUSE. WILL CONTINUE TO MONITOR.
[2018-04-02 07:20] VITALS: BP 170/86
[2018-04-02 15:30] VITALS: BP 119/56
--- NOTE | 2018-04-02 17:54 | NUR ---
ASSESSMENT COMPLETE. PT ORIENTED TO SELF ONLY, NOT ANSWERING QUESTIONS MORE THAN YES OR NO. PT SEEMS MORE CONFUSED TODAY. PT RESPIRATIONS INCREASED AND SHALLOW. PT UP TO 8L PER NC. PT AND FAMILY EDUCATED ON INCENTIVE SPIROMETER AND NEED TO DO HOURLY. PT ANXIOIUS AND CRYING IN PAIN MOST OF DAY. PT INCONT MOST OF THE DAY. IV LASIX GIVEN, FLUIDS DC'D. IV PAIN MEDICATION GIVEN NEEDED. PT IS FALL RISK, BED ALARM ON. Q2 TURN. PT/OT CONSULT. REHAB CONSULT. SEE ASSESSMENT AND VITALS FOR OTHER DETAILS. CALL LIGHT WITHIN REACH, WILL CONTINUE PLAN OF CARE
[2018-04-02 20:14] VITALS: BP 111/60
[2018-04-03] VITALS: BP 117/54
--- NOTE | 2018-04-03 01:29 | NUR ---
RECIEVED REPORT AND ASSUMED CARE OF PT.
[2018-04-03 03:46] VITALS: BP 171/76
--- NOTE | 2018-04-03 03:48 | NUR ---
PT'S O2 SAT 81% ON O2 8LITERS HIGH FLOW. PT CONFUSED AND DIAPHORETIC. ACCU CHECK AT 76. PT GIVEN APPLE SAUCE. PT NOW MORE ALERT AND RESPONDING APPROPRIATELY. O2 INCREASED TO 10 LITERS HIGH FLOW. O2 SAT 86-88%. RT PAGED.
[2018-04-03 04:10] LABS: ABSOLUTE BASOPHILS 0.1 thou/uL (0.0-0.2); ABSOLUTE EOSINOPHILS 0.3 thou/uL (0.0-0.7); ABSOLUTE LYMPHOCYTES 2.1 thou/uL (0.8-5.3); ABSOLUTE MONOCYTES 1.2 thou/uL (0.0-1.2); BASOPHILS 0.5 %; EOSINOPHILS 3.1 %; HEMATOCRIT 36.9 % (37.0-47.0); HEMOGLOBIN 11.9 gm/dL (12.0-15.0); LYMPHOCYTES 19.5 %; MCH 29.2 pg (26.0-34.0); MCHC 32.3 g/dL (28.0-37.0); MCV 90.2 fL (80.0-100.0); MPV 8.1 fl. (7.2-11.1); NUCLEATED RBCS 0 /100WBC; PLATELET COUNT* 207 thou/uL (150-400); POLYS 65.9 %; RBC 4.09 mil/uL (4.20-5.00); RDW-CV 15.6 % (10.5-14.5); WBC 10.6 thou/uL (4.0-11.0)
[2018-04-03 04:32] LABS: ALBUMIN 3.1 g/dL (3.4-5.0); CALCIUM 9.3 mg/dL (8.5-10.1); POTASSIUM 3.4 mmol/L (3.5-5.1); TOTAL BILIRUBIN 0.6 mg/dL (<0.1-1.0); TOTAL PROTEIN 6.5 g/dL (6.4-8.2)
[2018-04-03 07:40] VITALS: BP 147/54
[2018-04-03 11:35] VITALS: BP 178/82
--- NOTE | 2018-04-03 16:44 | NUR ---
ASSESSMENT COMPLETE. PT ORIENTED TO SELF AND SITUATIONS. SOME APHASIA NOTED, HX OF CVA. PT REPORTS IMPROVEMENT WITH PAIN CONTROL. PT AMBULATED IN JEWELL WITH PHYSICAL THERARPY. UP IN CHAIR FOR BREAKFAST AND LUNCH. Q2 TURN. PT BREATHING IS IMPROVING, STILL 10L PER NC WILL TITRATE WITH RESPIRATORY. PT GIVEN PAIN MEDICATION NEEDED. TAKES MEDICATIONS WITHOUT COMPLICATIONS. TOLERATING MEALS AND DENIES N/V. PT IS INCONT OF URINE AT TIMES. SKIN INTACT. FALL RISK, BED ALARM ON. UP WITH ONE ASSIST WITH WALKER AND GAIT BELT. IV ANTIBIOTICS GIVEN. IV SALINE LOCKED. PT IS NSR ON TELE MONITOR, VSS. SEE ASSESSMENT AND VITALS FOR OTHER DETAILS. CALL LIGHT WITHIN REACH, WILL CONTINUE PLAN OF CARE
[2018-04-03 16:57] VITALS: BP 157/60
[2018-04-03 20:10] VITALS: BP 145/60
[2018-04-04] VITALS: BP 120/56
[2018-04-04 03:41] VITALS: BP 126/55
--- NOTE | 2018-04-04 06:51 | NUR ---
PT SLEPT WELL OVERNIGHT. HS ACCUCHECK 256, INSULIN GIVEN WITH SNACK. TELE SR. NO LABS DRAWN THIS MORNING. BRUISING TO R RIBS AND R FOOT, SURGICAL SHOE ON R FOOT WHEN AMBULATING. UP WITH SBA TO BSC OVERNIGHT. ENCOURAGED IS USE. R FA SL. CALL LITE IN EASY REACH, BED ALARM ON FOR SAFETY. HYDROCODONE GIVEN FOR CO RIB PAIN.
[2018-04-04 08:28] VITALS: BP 174/69
[2018-04-04 11:30] VITALS: BP 143/72
[2018-04-04 16:00] VITALS: BP 170/70
--- NOTE | 2018-04-04 16:30 | NUR ---
SW met with pt and pt dtr to discuss safe dc planning. Pt family expressed that they would rather pt not go to inpt rehab; they feel that with pt broken ribs, the intense therapy may not be the best option for her. SW discussed possible SNF and provided referral list. Pt/family plan to review options and provide preferences. SW to continue to follow to assist with safe dc planning and placement if needed.
--- NOTE | 2018-04-04 17:44 | NUR ---
PAIN MANAGED WELL WITH ORDERED PAIN MEDS. PT DENIES NEEDS OR DISCOMFORTS CURRENTLY. PT ABLE TO MAKE NEEDS KNOWN, CALL LIGHT IN REACH
[2018-04-04 20:00] VITALS: BP 141/57
[2018-04-05 00:15] VITALS: BP 147/54
[2018-04-05 04:00] VITALS: BP 134/74
[2018-04-05 04:26] LABS: HEMATOCRIT 33.5 % (37.0-47.0); HEMOGLOBIN 11.2 gm/dL (12.0-15.0); MCH 29.2 pg (26.0-34.0); MCHC 33.4 g/dL (28.0-37.0); MCV 87.5 fL (80.0-100.0); MPV 8.5 fl. (7.2-11.1); NUCLEATED RBCS 0 /100WBC; PLATELET COUNT* 231 thou/uL (150-400); RBC 3.83 mil/uL (4.20-5.00); RDW-CV 15.3 % (10.5-14.5); WBC 8.6 thou/uL (4.0-11.0)
[2018-04-05 04:35] LABS: CALCIUM 9.4 mg/dL (8.5-10.1); CREATININE 1.2 mg/dL (0.6-1.3); POTASSIUM 3.7 mmol/L (3.5-5.1)
--- NOTE | 2018-04-05 05:00 | NUR ---
ASSUMED CAARE OF PT AT 1900 PT ALERT AND ORIENTED X 1-2. PT HAD PAIN MEDS TWICE THEN SLEPT IN BETWEEN. WILL CONTINUE PLAN OF CARE.
[2018-04-05 06:45] LABS: ABSOLUTE LYMPHOCYTES 0.7 thou/uL (0.8-5.3); ABSOLUTE MONOCYTES 0.6 thou/uL (0.0-1.2); ABSOLUTE NEUTROPHILS 7.3 thou/uL (1.6-8.1); ANISOCYTOSIS 1+; PLATELET ESTIMATE ADEQUATE; POIKILOCYTOSIS 1+
[2018-04-05 08:00] VITALS: BP 167/67
[2018-04-05 12:00] VITALS: BP 180/68
[2018-04-05 15:50] VITALS: BP 129/62
--- NOTE | 2018-04-05 18:03 | NUR ---
VSS-AFEBRILE. LUNGS CLEAR, MILDLY SOA WITH EXERTION. 3LNC IN PLACE- NO HOME OXYGEN REPORTED. MEDICATED TWICW DURING SHIFT FOR RIGHT RIB AND ANKLE PAIN, RELIEF NOTED. BLOOD SUGAR OF 48 PRIOR TO DINNER. 1 GLASS OF ORAGE JUICE GIVEN, DINNER SERVED. RECHECK OF GLUCOSE BEFORE DINNER WAS 95. OOB WITH 1 ASSIST, CALLS APPROPRIATELY FOR ANY NEEDED ASSISTANCE.
[2018-04-05 20:00] VITALS: BP 135/61
[2018-04-06] VITALS: BP 133/62
[2018-04-06 04:00] VITALS: BP 188/75
--- NOTE | 2018-04-06 04:46 | NUR ---
ASSUMED CARE OF PT AT 1900 PT ALERT AND ORIENTED TO SLEF. VS AND ASSESSMENT STABLE. PT RUNNING NSR ON THE MONITOR. PT HAD PAIN MEDS TWICE AND THEN SLEPT IN BETWEEN. WILL CONTINUE PLAN OF CARE.
[2018-04-06 07:55] VITALS: BP 144/75
[2018-04-06 15:00] VITALS: BP 118/58
[2018-04-06 21:00] VITALS: BP 138/57
[2018-04-07] VITALS: BP 143/62
[2018-04-07 04:00] VITALS: BP 107/65
--- NOTE | 2018-04-07 05:41 | NUR ---
PT SLEPT MOST OF SHIFT. ASSESSMENT DOCUMENTED. MEDS GIVEN PER E-APR. IV PATNET. PAIN MEDS GIVEN PER E-MAR. PT INCONTINENT THROUGH SHIFT. PT REPOSITIONED THROUGH NIGHT. WILL CONTINUE WITH PLAN OF CARE.
[2018-04-07 07:19] VITALS: BP 177/78
--- NOTE | 2018-04-07 13:41 | NUR ---
Nutrition: Plan is for SNF. Pt assessed for LOS. Admitted with ARF. Wt: 141#. Eating 100% of regular diet. BG 174, alb 3. Low risk at this time.
--- NOTE | 2018-04-07 15:52 | NUR ---
SW followed up with morning with pt and pt dtr Mica to discuss SNF preferences as pt was nearing readiness for dc. Pt dtr said that after speaking with her sister, the family has decided that they will reject pt dc to SNF and changed their minds and they want pt to dc to inpt rehab unit. SW encouraged pt dtr to have a second option in mind in case needed. BRITTANY spoke with Dr London, pt nurse and then rn rehabilitation Sherita who plans to submit for auth for inpt rehab and if approved, pt could possibly admit to inpt rehab on Saturday. SW to continue to follow to assist with safe dc planning/placement.
--- NOTE | 2018-04-07 16:14 | NUR ---
SHIFT NOTE- PT ASSESSMENT COMPLETE. PT ALERT AND ORIENTED TO SELF. PT REPORTS PAIN IMPROVING. PT UP IN CHAIR FOR BREAKFAST AND LUNCH. PT AND OT WORKED WITH PATIENT TODAY. LIDOCAINE PATCH AND PRN PAIN MEDICATIONS GIVEN NEEDED. PT TO TRANSFER TO REHAB POSSIBLY SATURDAY. PT IS ON 3L PER NC. HRR, TELE MONITOR SHOWS NSR. PT REPORTS CONSTIPATION TODAY, MIRALAX AND MAG CITRATE GIVEN. PT IS UP WITH ONE ASSIST TO BSC. PT HAS SURGICAL SHOE FOR RIGHT FOOT DUE TO BROKEN 5TH TOE. SEE ASSESSMENT AND VITALS FOR OTHER DETAILS. CALL LIGHT WITHIN REACH, BED ALARM ON. WILL CONTINUE PLAN OF CARE
[2018-04-07 16:47] VITALS: BP 137/65
[2018-04-07 20:10] VITALS: BP 146/77
[2018-04-08 00:56] VITALS: BP 185/89
[2018-04-08 03:02] VITALS: BP 149/70
--- NOTE | 2018-04-08 05:31 | NUR ---
PT SLEPT ON AND OFF OVERNIGHT. PO PAIN MED GIVEN FOR CO R RIB PAIN. TELE SR. UP WITH ASSIST TO BSC TO VOID. ENCOURAGED I.S. USE. LFA SL. O2 3L. HS ACCUCHECK 225, INSULIN GIVEN ORDERED. RT TX OVERNIGHT. HAS USED CALL LITE ONCE OVERNGHT FOR UP TO BATHROOM. NO LABS THIS MORNING.
[2018-04-08 07:14] VITALS: BP 149/66
--- NOTE | 2018-04-08 12:09 | NUR ---
AUTHORIZATION FOR INPATIENT REHAB HAS BEEN INITIATED. AWAITING INSURANCE REPLY.
--- NOTE | 2018-04-08 13:23 | NUR ---
SW continuing to follow to assist with safe dc planning. BRITTANY spoke with Dr London regarding plan for inpt rehab vs SNF. SW spoke with rehab spec and Alice OT actually sent for insurance authorization this morning. BRITTANY called and spoke with pt dtr Mica again about dc plans and possibility that pt may or may not qualify or receive auth for inpt rehab and to provide preferences for possible SNFs. Pt dtr did not want to provide SW with a possible SNF at this time, SW will continue to follow to assist with safe dc planning/placement.
--- NOTE | 2018-04-08 17:04 | NUR ---
FOLLOWING PATIENT ALONG WITH DR. KABA. RECIEVED CALL FROM INSURANCE [employer] AND THEY HAVE DENIED INPT ACUTE REHAB FOR PATIENT. OFFERED PEER TO PEER. LM FOR CM, ARYAN. WILL AWAIT DECISION FROM PHYSICIAN RE: PEER TO PEER.
--- NOTE | 2018-04-08 17:40 | NUR ---
ASSESSMENT COMPLETE. PT ALERT AND ORIENTED TO SELF. PT HAD MULTIPLE EPISODES OF LIQUID STOOL FROM LAXAT[employer]ES GIVEN. PT TOLERATING MEALS. Q2 TURN. 2L PER NC. ACCUCHECK ACHS. PT INCONT MOST OF THE DAY. DENIES N/V. PAIN MEDICATION GIVEN ONCE. SEE ASSESSMENT AND VITALS FOR OTHER DETAILS. CALL LIGHT WITHIN REACH, WILL CONTINUE PLAN OF CARE
[2018-04-08 19:45] VITALS: BP 124/85
[2018-04-08 20:00] VITALS: BP 124/55
[2018-04-09] VITALS (8 sets, daily range): BP systolic 115–151; BP diastolic 56–68
--- NOTE | 2018-04-09 05:54 | NUR ---
PT SLEPT WELL OVERNIGHT. O2 2L NC. SL IV. TURNED AND REPOSITIONED Q2 HOURS AND PRN FOR SKIN CARE AND COMFORT. INCONTINENT URINE, UP TO BSC WITH ASSIST. PO PAIN MED GIVEN AT HS. HS ACCUCHECK, INSULIN GIVEN WITH SNACK. AO TO SELF AND SITUATION, PLEASANT. NO LABS THIS MORNING. POSSIBLE DC TO SNF OR REHAB TODAY, CM FOLLOWING. BED ALARM ON FOR SAFETY.
--- NOTE | 2018-04-09 15:45 | NUR ---
ASSESSMENT COMPLETE. PT ALERT AND ORIENTED TO SELF. PT UP IN CHAIR MOST OF THE DAY. PT TOLERATING MEALS. VSS. PT IS FALL RISK, BED AND CHAIR ALARM. PT IS Q2 TURN, INCONT AT TIMES. WAITING FOR SKILLED PLACEMENT AT THIS TIME. SEE ASSESSMENT AND VITALS FOR OTHER DETAILS. CALL LIGHT WITHIN REACH, WILL CONTINUE PLAN OF CARE
--- NOTE | 2018-04-09 16:38 | NUR ---
VIDEOGAME DESIGNER SPOKE TO THE PATIENT'S DTR SYDNIE TO DISCUSS DISCHARGE PLANNING NEEDS, INFORM OF INSURANCE DENIAL OF INPATIENT REHAB, AND NEED FOR SKILLED AT D/C. PATIENT'S DTR DECLINES SKILLED STATES 'THERE IS NO WAY I'M SENDING HER TO THE [facility]'. D/C ABRASIVE WORKER ATTEMPTED TO EXPLAIN THE BENEFITS OF SKILLED. PATIENT'S DTR ADAMENT THAT SHE 'WILL JUST BRING HER HOME AND TAKE CARE OF HER WITH HH WITH [facility]'. D/C ABRASIVE WORKER SPOKE TO KRISTAL WITH INTAKE AT [facility] TO INFORM OF THE REFERRAL, AND FAXED THE PATIENT'S FACESHEET, H&P, AND D/C ORDERS. R.T. PERFORMED REST AND ACTIVITY TESTING WITH PATIENT AND PATIENT DOES NOT QUALIFY AT THIS TIME FOR HOME OXYGEN. PATIENT TO D/C HOME TODAY AND HER DTR WILL PROVIDE TRANSPORT AT 1900 WHEN SHE GETS OFF FROM WORK. CM WILL REMAIN AVIALABLE TO ASSIST AND FOLLOW NEEDED.
== END 2018-04-09 18:58 | disposition home health service (06) | DRG 183 ==
LOC: M.ERS 14:39 → M.3W 19:07 → M.TBA-ER 19:07 → M.3W 19:55
PROVIDERS: Internal Medicine; Physician Assistant; ADMIT Family Medicine
DX: S22.41XA Multiple fractures of ribs, right side, initial encounter for closed fracture (principal); J18.9 Pneumonia, unspecified organism; J96.01 Acute respiratory failure with hypoxia; G93.40 Encephalopathy, unspecified; N17.9 Acute kidney failure, unspecified; S92.351A Displaced fracture of fifth metatarsal bone, right foot, initial encounter for closed fracture; E78.00 Pure hypercholesterolemia, unspecified; W01.0XXA Fall on same level from slipping, tripping and stumbling without subsequent striking against object, initial encounter; Z96.643 Presence of artificial hip joint, bilateral; M19.90 Unspecified osteoarthritis, unspecified site; E86.0 Dehydration; I10 Essential (primary) hypertension; E11.65 Type 2 diabetes mellitus with hyperglycemia; Z86.73 Personal history of transient ischemic attack (TIA), and cerebral infarction without residual deficits; Z79.84 Long term (current) use of oral hypoglycemic drugs; Z79.4 Long term (current) use of insulin; Z79.899 Other long term (current) drug therapy; Z88.2 Allergy status to sulfonamides; Z91.048 Other nonmedicinal substance allergy status; Z90.710 Acquired absence of both cervix and uterus; Z95.1 Presence of aortocoronary bypass graft; Z83.3 Family history of diabetes mellitus; Y93.89 Activity, other specified; Y92.89 Other specified places as the place of occurrence of the external cause; Y99.8 Other external cause status

== ENCOUNTER 2018-11-08 14:08 | Inpatient (IN) | payer OTHER ==
[~2018-11-08] VITALS: Ht 149.9 cm; Wt 64.9 kg
[~2018-11-08 14:08] MED LIST changes: +HYDROCHLOROTHIA25 M2 PO; +MAGNESIUM OXID200 MG PO; +ZOLOFT25 MG PO
[2018-11-08 14:16] VITALS: BP 141/26
[2018-11-08] MEDS ORDERED: ASPIR 8181 MG PO (14:26)
[2018-11-08] MEDS ORDERED: ZANTAC 150MG T150 MG PO (14:27)
[2018-11-08 14:49] LABS: HEMATOCRIT 41.3 % (37.0-47.0); HEMOGLOBIN 13.7 gm/dL (12.0-15.0); MCH 28.8 pg (26.0-34.0); MCHC 33.1 g/dL (28.0-37.0); MCV 87.1 fL (80.0-100.0); MPV 8.1 fl. (7.2-11.1); NUCLEATED RBCS 0 /100WBC; PLATELET COUNT* 290 thou/uL (150-400); RBC 4.74 mil/uL (4.20-5.00); RDW-CV 14.8 % (10.5-14.5); WBC 18.6 thou/uL (4.0-11.0)
[2018-11-08 14:51] LABS: BE -0.3 mmol/L (-2 to +3); PCO2 VENOUS 38.8 mmHg (41.0-51.0); PO2 VENOUS 78.6 mmHg (35.0-45.0)
[2018-11-08 15:05] LABS: ANION GAP 14 mmol/L (7-16); BUN 20 mg/dL (7-18); CALCIUM 9.5 mg/dL (8.5-10.1); CHLORIDE 100 mmol/L (98-107); CO2 23 mmol/L (21-32); CREATININE 1.1 mg/dL (0.6-1.3); GLUCOSE 236 mg/dL (70-99); POTASSIUM 4.3 mmol/L (3.5-5.1); SODIUM 137 mmol/L (136-145)
[2018-11-08 15:15] LABS: ALBUMIN 4.1 g/dL (3.4-5.0); ALKALINE PHOSPHATASE 66 U/L (46-116); LIPASE 109 U/L (73-393); SGOT 30 U/L (15-37); SGPT 38 U/L (30-65); TOTAL PROTEIN 7.9 g/dL (6.4-8.2); TROPONIN-I LEVEL <0.06 ng/mL (<0.06)
[2018-11-08 15:27] LABS: ABSOLUTE EOSINOPHILS 0.2 thou/uL (0.0-0.7); ABSOLUTE LYMPHOCYTES 1.5 thou/uL (0.8-5.3); ABSOLUTE MONOCYTES 0.7 thou/uL (0.0-1.2); ABSOLUTE NEUTROPHILS 16.2 thou/uL (1.6-8.1); PLATELET ESTIMATE ADEQUATE
[2018-11-08 15:29] LABS: ANISOCYTOSIS Occasional; TOXIC GRANULATION 1+
[2018-11-08 17:24] VITALS: BP 149/63
[2018-11-08 17:45] VITALS: BP 145/55
[2018-11-08] MEDS ORDERED: VITAMIN D5000 UNIT PO (17:55)
[2018-11-08] MEDS ORDERED: VITAMIN B-12500 MCG PO (17:56)
[2018-11-08 20:00] VITALS: BP 150/61
[2018-11-09] VITALS (7 sets, daily range): BP systolic 131–196; BP diastolic 47–83
--- NOTE | 2018-11-09 04:32 | NUR ---
PT ALERT ORIENTED TO SELF ONLY. PT THOUGHT SHE WAS IN A SCHOOL BUILDING. SHE SAID THE DATE WAS SEPTEMBER 2019 AND DID NOT KNOW WHO THE PRESIDENT WAS. FENTANYL GIVEN ONCE FOR BACK PAIN. TWO EPISOIDS OF EMESIS. ZOFRAN GIVEN. UP TO BSC WITH ONE PERSON ASSIST. ONE SOFT FORMED BM. TELEMETRY SHOWS SR.
[2018-11-09 04:36] LABS: ABSOLUTE LYMPHOCYTES 0.9 thou/uL (0.8-5.3); ABSOLUTE MONOCYTES 0.9 thou/uL (0.0-1.2); ABSOLUTE NEUTROPHILS 11.6 thou/uL (1.6-8.1); BASOPHILS 0.2 %; HEMATOCRIT 41.5 % (37.0-47.0); HEMOGLOBIN 13.7 gm/dL (12.0-15.0); LYMPHOCYTES 6.7 %; MCH 28.7 pg (26.0-34.0); MCHC 33.1 g/dL (28.0-37.0); MCV 86.7 fL (80.0-100.0); MONOCYTES 6.6 %; MPV 7.6 fl. (7.2-11.1); NUCLEATED RBCS 0 /100WBC; PLATELET COUNT* 300 thou/uL (150-400); POLYS 86.5 %; RBC 4.79 mil/uL (4.20-5.00); WBC 13.4 thou/uL (4.0-11.0)
[2018-11-09 04:49] LABS: CALCIUM 9.9 mg/dL (8.5-10.1); CREATININE 1.1 mg/dL (0.6-1.3); POTASSIUM 3.9 mmol/L (3.5-5.1)
[2018-11-09 12:47] LABS: ALBUMIN 4.1 g/dL (3.4-5.0); CALCIUM 9.8 mg/dL (8.5-10.1); CREATININE 1.1 mg/dL (0.6-1.3); POTASSIUM 3.5 mmol/L (3.5-5.1); TOTAL BILIRUBIN 1.7 mg/dL (<0.1-1.0); TOTAL PROTEIN 8.2 g/dL (6.4-8.2)
[2018-11-09 15:05] LABS: HEMATOCRIT 41.6 % (37.0-47.0); HEMOGLOBIN 13.8 gm/dL (12.0-15.0); MCH 28.9 pg (26.0-34.0); MCHC 33.2 g/dL (28.0-37.0); MCV 87.1 fL (80.0-100.0); MPV 8.7 fl. (7.2-11.1); RBC 4.78 mil/uL (4.20-5.00); RDW-CV 15.2 % (10.5-14.5); WBC 16.6 thou/uL (4.0-11.0)
--- NOTE | 2018-11-09 19:03 | NUR ---
ASSUMED PT CARE AT 0730, FULL ASSESMENT DONE CHARTED.PT A/O X1-2, FORGETFUL BUT APPROPRIATE. PT C/O BACK AND ABD PAIN, HAS HAD N/V ON AND OFF THIS SHIFT, MEDS GIVEN PER MAR. NOT ALWAYS EFFECTIVE. PT INCONTINANT OF URINE. SOMETIMES CALLS FOR ASSISTANCE TO THE COMODE. PTS FAMILY AT BEDSIDE. UPDATED ON PLAN OF CARE, VERBALIZED UNDERSTANDING. FALL PRECAUTIONS MAINTAINED. WILL CONTINUE TO MONITOR.
[2018-11-10] VITALS (7 sets, daily range): BP systolic 124–174; BP diastolic 57–85
[2018-11-10 02:05] LABS: GLYCOHEMOGLOBIN (HGB A1C) 8.4 % (4.8-5.6)
[2018-11-10 05:27] LABS: CHOLESTEROL 181 mg/dL (<200); HDL CHOLESTEROL 61 mg/dL (>40); LDL CHOLESTEROL 85 mg/dL (<100); TRIGLYCERIDE 178 mg/dL (<150); VLDL 36 mg/dL (<40)
[2018-11-10 05:33] LABS: SERUM ASSESSMENT Slight Lipemia
--- NOTE | 2018-11-10 06:13 | NUR ---
ASSUMED CARE OF PT AFTER REPORT AT 1930. PT A&OX2. CONFUSED & FORGETFUL AT TIMES. VSS. PHYSICAL ASSESSMENT COMPLETED AND CHARTED. PT ON RA. PT TRACING SR/PAC/PVC ON TELE. PT DENIES ANY PAIN OR NAUSEA. INSTRUCTED ON NPO POST MIDNIGHT FOR EGD TODAY. COMMUNICATES UNDERSTANDING. PT ABLE TO SLEEP WELL ON BED. CALL LIGHT WITHIN REACH.
--- NOTE | 2018-11-10 11:11 | EKG ---
[place] [address] ELECTROCARDIOGRAM REPORT Name: MAYE FERMIN Room: [address] ADM IN .R.#: [id number] Admission: 11/08/18 Attend Phys: Raul London MD Discharge: Date of : [birth year] Report #: [id number] THIS REPORT FOR: //name// [facility] ED Test Date: 2018-11-08 Test Time: 14:18:16 Pat Name: MAYE FERMIN Department: Room: [address] Gender: F High Value Associate: : 1930 Requested By: Raul London Order Number: [id number] Reading MD: Ranjan Olivo Measurements Intervals [place] Rate: 59 P: 12 IA: 150 QRS: -24 QRSD: 112 T: 198 QT: 457 QTc: 453 Interpretive Statements Sinus rhythm LEFT VENTRICULAR HYPERTROPHYwith repolarization changes Probable anterior infarct, age indeterminate Compared to ECG 03/31/2018 17:04:47 no change Electronically Signed On 11-10-2018 11:11:10 CDT by Ranjan Olivo [email or web address] <ELECTRONICALLY SIGNED> By: Ranjan Olivo MD, [facility] 11/10/18 1111 1418 1418 Ranjan Olivo MD, [facility] /EPI
--- NOTE | 2018-11-10 11:25 | NUR ---
Pt is having difficulty with memory recall. Daughter Mica was notified and asked for her sister Alyce's number for DPOA. Mica informed me that all 3 daughters were on the DPOA but no one has the paperwork it has been lost in a move. Contacted Alyce she had signed the GI consent to obtain anesth consent. Alyce was contacted at [phone]. Was able to get verbal consent and encouraged both daughters to fill out new DPOA paperwork . Will consult case management. Pt's Grand daughter Yolette is at bedside with patient.
--- NOTE | 2018-11-10 11:40 | NUR ---
PT OFF UNIT FOR TEST
--- NOTE | 2018-11-10 16:09 | NUR ---
SPOKE WITH PT'S DTR/SYDNIE HOPE OVER THE PHONE. PT LIVES WITH SYDNIE AND HAS FOR THE LAST 31YRS. SYDNIE WORKS AND HAS 2 HIRED LADIES THAT STAY WITH PT WHEN SHE IS GONE. THEY ARE ABLE TO ASSIST WITH MEALS AND EXERCISES. PT HAS WALKER. DOES STAY AT HER OTHER DTR/KEISHA'S HOME ALSO AND PER SYDNIE, HAD 2 FALLS THERE. PT HAS 5 CHILDREN BUT ONLY 3 LIVE CLOSEBY. PT HAS HAD [facility] AND BEEN TO INPT REHAB AT [facility]. DTR IS INTERESTED IN REHAB. WILL DISCUSS WITH DR. OTOOLE ALSO STATED THAT THEY CANNOT FIND COPY OF DPOA. WILL DISCUSS FURTHER WITH PT RE: NEW DPOA.
[2018-11-11] VITALS (7 sets, daily range): BP systolic 153–199; BP diastolic 48–115
[2018-11-11 04:39] LABS: ABSOLUTE LYMPHOCYTES 1.6 thou/uL (0.8-5.3); ABSOLUTE MONOCYTES 1.3 thou/uL (0.0-1.2); ABSOLUTE NEUTROPHILS 9.6 thou/uL (1.6-8.1); BASOPHILS 0.1 %; HEMATOCRIT 41.4 % (37.0-47.0); HEMOGLOBIN 13.7 gm/dL (12.0-15.0); LYMPHOCYTES 12.6 %; MCH 28.7 pg (26.0-34.0); MCHC 33.1 g/dL (28.0-37.0); MCV 86.7 fL (80.0-100.0); MONOCYTES 10.2 %; MPV 7.8 fl. (7.2-11.1); NUCLEATED RBCS 0 /100WBC; PLATELET COUNT* 274 thou/uL (150-400); POLYS 77.1 %; RBC 4.77 mil/uL (4.20-5.00); WBC 12.4 thou/uL (4.0-11.0)
[2018-11-11 04:48] LABS: CALCIUM 8.9 mg/dL (8.5-10.1); CREATININE 0.7 mg/dL (0.6-1.3)
[2018-11-11 05:06] LABS: POTASSIUM 2.8 mmol/L (3.5-5.1)
--- NOTE | 2018-11-11 06:21 | NUR ---
ASSUMED CARE OF PT AFTER REPORT AT 1930. PT A&OX1. CONFUSED. VSS. PHYSICAL ASSESSMENT COMPLETED AND CHARTED. PT ON O2 AT 2L NC. PT TRACING SR ON TELE. PT COMPLAINED OF 1 EPISODE OF NAUSEA-MED GIVEN PER APR. PT ABLE TO SLEEP WELL ON BED. PT POTASSIUM 2.8-DR RODRÍGUEZ INFORMED WITH NEW ORDERS. CALL LIGHT WITHIN REACH.
--- NOTE | 2018-11-11 14:22 | NUR ---
ASSUMED CARE OF PATIENT THIS AM AT 0730. PATIENT IS DROWSY, ORIENTED TO PERSON AND PLACE THIS AM. SOME APHASIA NOTED. TELE SHOWS NSR. NPO STATUS CANCELLED AND PATIENT STARTED ON A CARB CONTROLLED DIET THIS AFTERNOON. HER APPETITE IS POOR. HER POTASSIUM LEVEL WAS LOW AT 2.8. IV POTASSIUM INFUSION STARTED PER PROTOCAL. PATIENT HAS BEEN ASSISTED UP TO THE CHAIR AND TO THE BSC. PATIENT MEDICATED FOR PAIN X 1. SHE HAS BEEN RETURNED TO BED. BED ALARM IS ON AND CALL LIGHT IS IN REACH.
--- NOTE | 2018-11-11 16:05 | NUR ---
CONTINUE TO URIEL, MET WITH PT AND WILL/LASHAUN PT WAS UP IN CHAIR BUT SLEEPY. DISCUSSED POSSIBLE DC PLANS, PT AGREEABLE TO CONSIDER REHAB BUT NOT SNF. DISCUSSED DPOA, SHE IS NOT READY TO COMPLETE NOW. WILL FOLLOW
[2018-11-12] VITALS (9 sets, daily range): BP systolic 155–179; BP diastolic 61–78
--- NOTE | 2018-11-12 14:43 | NUR ---
vss, ASSUMED CARE IN THE AM, ASSESSMENT PERFORMED AND CHARTED, FALL PRECAUTIONS IN PLACE AND CALL LIGHT IN REACH, PT IS CONFUSED AND UP WITH 1 TO BSC NEEDS WALKER, PT IS TRACING SR ON THE MONITOR, PT IS IS TO DISCHARGE TO HOME WITH DTR, WILL FOLLOW WITH PLAN OF CARE.
--- NOTE | 2018-11-12 14:50 | NUR ---
ORDER NOTED TO DC. SPOKE WITH DR BISHOP, HE RECOMMENED SNF, NOT INPT REHAB. PT UP IN CHAIR TODAY, ONE OF HER CAREGIVERS IN ROOM AND FELT CONFIDENT THAT SHE COULD CARE FOR PT AT HOME. CALL TO DTR/SYDNIE, THEY DECLINE SNF AND WILL TAKE PT HOME WITH [facility]. CALLED AND FAXED ORDERS TO [facility]. DTR TO PICK PT UP AROUND 6PM
[2018-11-12] MEDS ORDERED: PROTONIX40 M1 PO (16:34)
[2018-11-13 00:03] VITALS: BP 138/50
--- NOTE | 2018-11-13 03:24 | NUR ---
ASSUMED PT CARE AT APPROX 1930. PT IS SLEEPING BUT IS AROUSABLE, ORIENTED TO SELF AND SITUATION. VSS ON ROOM AIR. SYNTHETIC SOIL BLOCKS PULPER IN PLACE TRACING SR. ASSESSMENT DONE AND CHARTED. PT IS FOR KYPHO/VERTEBROPLASTY IN AM. PT IS MAINTAINED ON NOTHING BY MOUTH POST MIDNIGHT FOR THE PROCEDURE. POSITION CHANGES DONE. CALL LIGHT WITHIN REACH, HOURLY ROUNDING DONE FOR PT SAFETY.
[2018-11-13 04:34] VITALS: BP 152/62
[2018-11-13 04:36] LABS: ABSOLUTE EOSINOPHILS 0.1 thou/uL (0.0-0.7); ABSOLUTE LYMPHOCYTES 2.4 thou/uL (0.8-5.3); ABSOLUTE MONOCYTES 1.3 thou/uL (0.0-1.2); ABSOLUTE NEUTROPHILS 5.3 thou/uL (1.6-8.1); BASOPHILS 0.3 %; EOSINOPHILS 1.6 %; HEMATOCRIT 42.4 % (37.0-47.0); LYMPHOCYTES 26.2 %; MCH 28.7 pg (26.0-34.0); MCHC 33.1 g/dL (28.0-37.0); MCV 86.6 fL (80.0-100.0); MONOCYTES 14.1 %; NUCLEATED RBCS 0 /100WBC; PLATELET COUNT* 252 thou/uL (150-400); POLYS 57.8 %; RBC 4.89 mil/uL (4.20-5.00); RDW-CV 14.9 % (10.5-14.5); WBC 9.2 thou/uL (4.0-11.0)
[2018-11-13 05:00] LABS: PROTIME 10.2 Seconds (9.20-11.50)
[2018-11-13 05:17] VITALS: BP 152/62
[2018-11-13 07:37] VITALS: BP 156/72
--- NOTE | 2018-11-13 08:00 | NUR ---
AM ASSESSMENT COMPLETE, DEFER TO COMPTUER CHARTING. PATIENT CONSUMER MARKETER TRACKING SR. ALERT ORIENTED TO SELF. DENIES PAIN, DIZZINESS AT THIS TIME. REMAINS NPO FOR PROCEDURE. DAUGHTER AT BEDSIDE. CALL LIGHT WITHIN REACH. WILL MONITOR.
[2018-11-13 12:35] VITALS: BP 151/74
[2018-11-13] MEDS ORDERED: LIDOCAINE PAIN1 EACH SUBQ (14:59)
--- NOTE | 2018-11-13 15:18 | NUR ---
Nutrition: assessed for LOS, admit with compression fx. Wt stable from records in [place]. Meds reviewed. Albumin WNL. Pt has been NPO for kyphoplasty, c/o nasuea noted. No nutrition recommendations at this time, low nutrition risk.
--- NOTE | 2018-11-13 16:04 | NUR ---
DC DELAYED FOR POSSIBLE KYPHOPLASTY, PT DID NOT HAVE BUT A BRACE WAS RECOMMENDED. ARRANGED FOR BRACE THRU SALES TECHNICIAN. WAS DELIVERED AND THERAPY SAW PT AGAIN. THERAPY AND CM DISCUSSED DC AGAIN WITH PT AND DTR AND IN AGREEMENT TO GO HOME WITH HH. CALLED AND FAXED UPDATED INFO TO [facility] AND MADE AWARE PT GOING HOME TODAY NOW. FAMILY TO PROVIDE TRANSPORT HOME
--- NOTE | 2018-11-13 17:49 | NUR ---
DISCHARGE ORDERS RECEIVED. ZENA IN EARLIER AND PATIENT PLACED IN BACK BRACE - REPORING SUPPORT FROM DEVICE. UP IN CHAIR EARLIER, TOLERATING DIET. NO CHANGE IN CONDITION AT THIS TIME. PATIENT IN STABLE CONDITION AT DISCHARGE. PATIENT AND DAUGHTER EDUCATED ON DISCHARGE INSTURCTIONS, VERBALIZED UNDERSTANDING HAVING NO QUESTIONS. GIVEN WRITTEN DISCHARGE INSTURCITONS FOR REINFORCEMENT TEACHING. CHAIN SALES CONSULTANT AND [employer]INE LOCK DC'D. ALL PERSONAL BELONGINGS COLLECTED BY DAUGHTER. DC'D VIA W/C WITH ALL PERSONAL BELONGINGS.
--- NOTE | 2018-11-14 11:18 | CON ---
[address] [address] CONSULTATION Name: MAYE FERMIN Room: [address] IN .R.#: [id number] Admission: 11/08/18 Attend Phys: Raul London MD Discharge: 11/13/18 Date of : [birth year] Report #: [id number] THIS REPORT FOR: //name// CC: Raul London [facility] DATE OF SERVICE: 11/09/2018 HISTORY OF PRESENT ILLNESS: This is a pleasant 88-year-old female with past medical history significant for prior history of hypertension, stroke, right-sided hemiparesis, type 2 diabetes, hyperlipidemia, who is presenting for evaluation of intractable nausea and vomiting. The patient reports she began developing epigastric abdominal pain about 2 weeks back and this progressed to involve some nausea. Since last week, she began developing episodes of vomiting. Initially, she had about 3-4 episodes per day, but now prior to presentation, she had about 20 episodes on the last day. The patient reports the nausea and vomiting bear no specific association to food. The patient even has several dry heaves after not consuming food for a long time. The patient denies any subjective sensation of fever or chills. Denies such episodes in the past. PAST MEDICAL HISTORY: As mentioned above, hypertension, hyperlipidemia, diabetes, stroke, and CVA. PAST SURGICAL HISTORY: The patient had heart surgery, bilateral hip replacement and back surgery. The patient has had no abdominal surgeries. SOCIAL HISTORY: No history of smoking, alcohol or recreational drug use. FAMILY HISTORY: There is no family history of colorectal cancer or Lerma related neoplasia. REVIEW OF SYSTEMS: A comprehensive 10-point review of systems is negative except for what was mentioned in the HPI. PHYSICAL EXAMINATION: VITAL SIGNS: Temperature 37.1, pulse rate 89, blood pressure 175/83. GENERAL: The patient is alert, awake, oriented x 3. Appears ill and nauseated. HEENT: Mucous membranes are moist. There is no congestion. LUNGS: Clear to auscultation bilaterally. CARDIOVASCULAR: Rate and rhythm regular. S1, S2 present. ABDOMEN: Soft. There is no distention, guarding or rigidity. EXTREMITIES: Warm, well perfused. There is no edema. SKIN: Warm and dry. ASSESSMENT AND PLAN: Pleasant 88-year-old female [place] [address] CONSULTATION Name: MAYE FERMIN Room: [address]#: [id number] Admission: 11/08/18 Attend Phys: Raul London MD Discharge: 11/13/18 Date of : [birth year] Report #: [id number] LABORATORY DATA: Hemoglobin 13.7, hematocrit 41.5, platelet count 300, WBC count 13.4. Chemistry: Sodium 135, potassium 3.5, chloride 95, bicarb 24, BUN 21, creatinine 1.1. Total bilirubin 1.7, AST 26, ALT 39, alk phos 69. I would recommend getting a CT abdomen and pelvis with p.o. contrast to rule out bowel obstruction. We will schedule the patient for EGD tomorrow and we can also schedule her for gastric emptying test depending on the results of the EGD. Thank you for this consultation. <ELECTRONICALLY SIGNED> By: Ascencion Sabillon MD 11/14/18 1118 1507 1959Ascencion Sabillon MD /nt
== END 2018-11-13 17:55 | disposition home health service (06) | DRG 542 ==
LOC: M.ERS 14:08 → M.TBA-ER 16:51 → M.2W 16:51
PROVIDERS: Emergency Medicine Emergency Medical Services; Internal Medicine; Internal Medicine Gastroenterology; Radiology Diagnostic Radiology; ADMIT Internal Medicine
PROC: 0D758ZZ Dilation of Esophagus, Via Natural or Artificial Opening Endoscopic (ICD-10-PCS; principal; 2018-11-10)
DX: M80.08XA Age-related osteoporosis with current pathological fracture, vertebra(e), initial encounter for fracture (principal); G93.41 Metabolic encephalopathy; Z96.643 Presence of artificial hip joint, bilateral; E78.5 Hyperlipidemia, unspecified; K44.9 Diaphragmatic hernia without obstruction or gangrene; K21.0 Gastro-esophageal reflux disease with esophagitis; E87.6 Hypokalemia; E11.43 Type 2 diabetes mellitus with diabetic autonomic (poly)neuropathy; K31.84 Gastroparesis; I10 Essential (primary) hypertension; E78.00 Pure hypercholesterolemia, unspecified; M19.90 Unspecified osteoarthritis, unspecified site; Z86.73 Personal history of transient ischemic attack (TIA), and cerebral infarction without residual deficits; Z88.2 Allergy status to sulfonamides; Z82.49 Family history of ischemic heart disease and other diseases of the circulatory system; Z79.82 Long term (current) use of aspirin; Z79.899 Other long term (current) drug therapy; Z90.710 Acquired absence of both cervix and uterus; Z95.1 Presence of aortocoronary bypass graft; R13.14 Dysphagia, pharyngoesophageal phase

== ENCOUNTER 2019-07-24 17:54 | Inpatient (IN) | payer OTHER ==
[~2019-07-24] VITALS: Ht 152.4 cm; Wt 65.8 kg
[~2019-07-24 17:54] MED LIST changes: +ASPIR 8181 MG PO; +LIDOCAINE PAIN1 EACH SUBQ; +PROTONIX40 M1 PO; +VITAMIN B-12500 MCG PO; +VITAMIN D5000 UNIT PO
[2019-07-24 18:10] VITALS: BP 180/84
[2019-07-24 19:34] LABS: ABSOLUTE BASOPHILS 0.1 thou/uL (0.0-0.2); ABSOLUTE EOSINOPHILS 0.2 thou/uL (0.0-0.7); ABSOLUTE LYMPHOCYTES 2.8 thou/uL (0.8-5.3); ABSOLUTE NEUTROPHILS 8.1 thou/uL (1.6-8.1); BASOPHILS 0.6 %; EOSINOPHILS 1.9 %; LYMPHOCYTES 23.3 %; MCH 28.7 pg (26.0-34.0); MCHC 32.6 g/dL (28.0-37.0); MONOCYTES 7.9 %; MPV 7.8 fl. (7.2-11.1); NUCLEATED RBCS 0 /100WBC; PLATELET COUNT* 331 thou/uL (150-400); POLYS 66.3 %; RBC 4.89 mil/uL (4.20-5.00); RDW-CV 15.6 % (10.5-14.5); WBC 12.2 thou/uL (4.0-11.0)
[2019-07-24 19:43] LABS: APTT 25.2 Seconds (25.0-31.3); PROTIME 10.6 Seconds (9.20-11.50)
[2019-07-24 19:48] VITALS: BP 154/70
[2019-07-24 19:49] LABS: CREATININE 1.1 mg/dL (0.6-1.3); POTASSIUM 4.1 mmol/L (3.5-5.1)
[2019-07-24 19:54] LABS: ALBUMIN 4.2 g/dL (3.4-5.0); TOTAL BILIRUBIN 0.9 mg/dL (<0.1-1.0); TOTAL PROTEIN 8.5 g/dL (6.4-8.2)
[2019-07-24 20:30] VITALS: BP 166/63
--- NOTE | 2019-07-25 05:10 | NUR ---
PT ARRIVED FROM THE ER AT 2014. A&O, FORGETFUL AT TIMES. MEDS GIVEN ORDERED. ADMISSION HX/ASSESSMENT COMPLETED. PT UP TO BSC WITH 1-2, HAD SMALL BM. LT LEG ELEVATED ON PILLOW. SPLINT IN PLACE, NWB MAINTAINED. NO C/O PAIN. NPO SINCE MIDNIGHT. WILL CONTINUE TO MONITOR.
[2019-07-25 08:03] VITALS: BP 164/65
--- NOTE | 2019-07-25 09:47 | EKG ---
[place] [address] ELECTROCARDIOGRAM REPORT Name: MAYE FERMIN Room: [address] ADM IN M.R.#: [id number] Admission: 07/24/19 Attend Phys: Cornelius Robbins, Discharge: Date of : [birth year] Date of Service: 07/24/191916 Report #: [id number] THIS REPORT FOR: //name// [facility] ED Test Date: 2019-07-24 Test Time: 19:17:29 Pat Name: MAYE FERMIN Department: Room: [facility] Gender: F Weatherization Operations Manager: [place] : 1930 Requested By: Candelario Rasmussen Order Number: [id number] MD: Ralph Smith Measurements Intervals [place] Rate: 76 P: 2 AR: 124 QRS: -17 QRSD: 111 T: 121 QT: 415 QTc: 467 Interpretive Statements Sinus rhythm LVH with secondary repolarization abnormality Anterior infarct, old Compared to ECG 11/08/2018 14:18:16 Left ventricular hypertrophy now present Early repolarization now present Myocardial infarct finding still present Electronically Signed On 07-25-2019 9:46:51 CDT by Ralph Smith [email or web address] <ELECTRONICALLY SIGNED> By: Nisreen Smith MD, [facility] 07/25/1947 16 16 Nisreen Smith MD, [facility] /EPI
--- NOTE | 2019-07-25 17:31 | NUR ---
PT A&Ox2-3. UP WITH 2 USING GAITBELT AND WALKER. NWB ON L FOOT. IV PATENT. DENIED PAIN. DENIED N/V. TOLERATING DIET. FALL PRECAUTIONS IN PLACE. CALL LIGHT WITHIN REACH. WILL CONTINUE TO MONITOR.
[2019-07-25 20:46] VITALS: BP 146/53
--- NOTE | 2019-07-26 04:07 | NUR ---
PT ALERT AND ORIENTED TO SELF, CONFUSION NOTED, VSS, NWB MAINTAINED TO LLE, PT TURNED Q2H, NO C/O PAIN THIS SHIFT. PT SLEEPING WELL. WILL CONTINUE WITH PLAN OF CARE.
[2019-07-26 07:10] VITALS: BP 136/63
[2019-07-26 07:27] LABS: URINE BILIRUBIN NEGATIVE (Negative); URINE BLOOD TRACE (Negative); URINE CLARITY CLEAR; URINE COLOR YELLOW; URINE GLUCOSE-RANDOM NEGATIVE (Negative); URINE KETONES NEGATIVE (Negative); URINE NITRITE-REFLEX NEGATIVE (Negative); URINE PROTEIN NEGATIVE (Negative); URINE UROBILINOGEN 0.2 E.U./dl (0.2-1.0)
[2019-07-26 07:29] LABS: URINE LEUKOCYTES-REFLEX 2+ (Negative)
[2019-07-26 07:36] LABS: BACTERIA-REFLEX >30 Many /HPF (None Seen); CASTS None Seen /LPF (None Seen); CRYSTALS None Seen /LPF (None Seen); MUCUS 0-3 Light strn/LPF (None Seen); SQUAMOUS 0-3 Few /LPF (0-3); URINE RBC 0-2 Rare /HPF (0-2)
[2019-07-26 16:12] VITALS: BP 157/45
[2019-07-26] MEDS ORDERED: CEFUROXIME250 MG PO (16:47)
[2019-07-26 17:08] VITALS: BP 157/45
[2019-07-26 17:20] VITALS: BP 157/45
[2019-07-26 17:42] VITALS: BP 157/45
--- NOTE | 2019-07-26 18:12 | NUR ---
PT REMAINED ALERT TO SELF AND FORGETFUL. PT WILL DISCHARGE TODAY ONCE AMBULANCE ARRANGED. FAMILY UPDATED ON DISCHARGE STATUS. DISCHARGE ORDERS COPIED TO CHART. FALL RISK PRECAUTIONS IN PLACE. BOOT TO LLE IN PLACE. HOURLY ROUNDING COMPLETED. WILL CONTINUE TO MONITOR.
--- NOTE | 2019-07-26 19:08 | NUR ---
PT GIVEN DISCHARGE INFORMATION. PRESCRIPTION FAXED TO PHARMACY. AMBULANCE SET UP. IV REMOVED. FALL RISK PRECAUTIONS IN PLACE. FAMILY NOTIFIED. HOURLY ROUNDING COMPLETED. AWAITING AMBULANCE.
--- NOTE | 2019-08-06 13:38 | NUR ---
Dr Jessica Zhu would not approve inpatient rate but approved observation. After AUTOMATIC EDGER review and Discussion in Revenue Cycle Call, CBO to re-bill Observation.
== END 2019-07-26 19:23 | disposition home health service (06) | DRG 543 ==
LOC: M.ERS 17:54 → M.ORTHSURG 19:08 → M.TBA-ER 19:08 → M.ORTHSURG 20:17
PROVIDERS: Family Medicine; ADMIT Internal Medicine; ATTEND Internal Medicine
PROC: 2W3TX1Z Immobilization of Left Foot using Splint (ICD-10-PCS; principal; 2019-07-24)
DX: M80.072A Age-related osteoporosis with current pathological fracture, left ankle and foot, initial encounter for fracture (principal); I69.351 Hemiplegia and hemiparesis following cerebral infarction affecting right dominant side; E78.00 Pure hypercholesterolemia, unspecified; M19.90 Unspecified osteoarthritis, unspecified site; E78.5 Hyperlipidemia, unspecified; N30.91 Cystitis, unspecified with hematuria; E11.9 Type 2 diabetes mellitus without complications; I25.10 Atherosclerotic heart disease of native coronary artery without angina pectoris; I10 Essential (primary) hypertension; Z96.643 Presence of artificial hip joint, bilateral; Z79.01 Long term (current) use of anticoagulants; Z79.4 Long term (current) use of insulin; Z79.899 Other long term (current) drug therapy; Z88.2 Allergy status to sulfonamides; Z91.09 Other allergy status, other than to drugs and biological substances; Z95.1 Presence of aortocoronary bypass graft; Z90.710 Acquired absence of both cervix and uterus